=== PATIENT | female | born 1985 | race Caucasian/White ===

== ENCOUNTER 2018-10-15 20:30 | Outpatient (CLI) | payer MEDICAID, OTHER | END 2018-10-15 20:31 | disposition home or self-care (01) | LOC: SLEEPLAB 20:30 | PROVIDERS: ATTEND Family Medicine | DX: G47.33 Obstructive sleep apnea (adult) (pediatric) (principal); R53.83 Other fatigue; R09.89 Other specified symptoms and signs involving the circulatory and respiratory systems; R06.83 Snoring; E11.9 Type 2 diabetes mellitus without complications; F41.8 Other specified anxiety disorders; G47.00 Insomnia, unspecified; G47.10 Hypersomnia, unspecified | CPT/HCPCS: 95811 ==

== ENCOUNTER 2019-02-24 11:53 | Inpatient (IN) | payer OTHER, SELFPAY ==
[~2019-02-24 11:53] MED LIST: Fentanyl 100 MCG/2 ML VIAL ONE; HYDROmorphone 0.5 MG/0.5 ML SYRINGE ONE; Lidocaine 2% Jelly 5 ML TUBE ONE; Midazolam HCl 2 mg/2 ml Vial ONE; Oxymetazoline HCl 0.05% ( 15 ML ) ONE
[2019-02-24] MEDS ORDERED: Ophthalmic Irrigation Solution 0 ML ONE (11:57)
[2019-02-24] MEDS ORDERED: Lidocaine 1% w/Epinephrine 1:100K 20 ML VIAL ONE (11:57)
[2019-02-24] MEDS ORDERED: Bacitracin Zinc Ointment 30 gm TUBE ONE (11:57)
[2019-02-24] MEDS ORDERED: Chlorhexidine Gluconate 15 ML UDCUP SSP ONE ×2 (11:57→11:59)
[2019-02-24] MEDS ORDERED: Sodium Chloride 0.9% 10 ML ONE (12:17)
[2019-02-24] MEDS ORDERED: Acetaminophen 500 MG TAB ONE (12:19)
[2019-02-24] MEDS ORDERED: ISOVUE-370 76%-LOCM 1 ML ONE (12:36)
[2019-02-24 12:38] LABS: #Basophils 0.1 thou/uL (0.0-0.2); #Lymphocytes 1.3 thou/uL (1.20-3.40); #Monocytes 0.3 thou/uL (0.11-0.59); %Basophils 0.5 % (0.0-1.0); %Eosinophils 0.3 % (0.0-10.0); %Lymphocytes 13.6 % (21.0-51.0); %Monocytes 3.5 % (0.0-10.0); %Neutrophils 82.1 % (42.0-75.0); Hemoglobin 9.4 g/dL (12.0-16.0); Mean Corpuscular HGB CONC 33.4 g/dL (32.0-36.0); Mean Corpuscular Hemoglobin 30.4 pg (27.0-31.0); Mean Corpuscular Volume 90.9 fL (78.0-98.0); Mean Platelet Volume 8.2 fL (7.4-10.4); Platelet Count 243 thou/uL (130-400); RBC Distribution Width 19.5 % (11.5-14.5); Red Blood Cell (RBC) Count 3.08 mill/uL (4.20-5.40); White Blood Cell (WBC) Count 9.7 thou/uL (4.8-10.8)
[2019-02-24 12:49] LABS: INR-International Normal Ratio 1.1; PTT 31.3 SEC (22.9-36.1); Prothrombin Time 13.8 SEC (12.0-14.7)
[2019-02-24 12:58] LABS: ALT (SGPT) 29 U/L (8-55); AST (SGOT) 24 U/L (5-34); Albumin 4.3 g/dL (3.5-5.0); Alkaline Phosphatase 179 U/L (40-150); Anion Gap 13 mmol/L (10-20); BUN (Urea Nitrogen) 11 mg/dL (7.0-18.7); Bilirubin, Total 5.2 mg/dL (0.2-1.2); CK (CPK) 44 U/L (29-168); Calc. Creatinine Clearance 0 mL/min (70-130); Calcium 9.2 mg/dL (7.8-10.44); Carbon Dioxide 26 mmol/L (22-29); Chloride 102 mmol/L (98-107); Estimated GFR-MDRD 72; Globulin 2.4 g/dL (2.4-3.5); Glucose 223 mg/dL (70-105); Lipase 4 U/L (8-78); Potassium 4.1 mmol/L (3.5-5.1); Protein, Total 6.7 g/dL (6.0-8.3); Sodium 137 mmol/L (136-145)
--- NOTE | 2019-02-24 13:17 | RAD ---
1 VIEW CHEST: Date: 02/24/19 HISTORY: Fever. Left-sided tooth abscess. FINDINGS: Portable upright chest radiograph demonstrates magnification of the cardiac silhouette, likely due to technique. Pulmonary vessels and hilum are normal. No masses or consolidation. No pneumothorax or os seous abnormalities. IMPRESSION: No acute cardiopulmonary process. POS: [facility]
--- NOTE | 2019-02-24 13:38 | PDOC.FPRHP ---
- History of Present Illness Chief Complaint: Sepsis History of Present Illness: Pt is 33 yo F with a history of GERD, Normocytic anemia, DM II, HtN, Anxiety, Depression, and Morbid obesity who presents for with sepsis 2/2 tooth abscess. She said she knew she had a cavity starting back in January. She was given Amoxicillin on the 04 of February. She said that resolved the pain for about 10 days, but this past Sat on 02/20 she began developing pain. She got an appt on . At the appt they decided to started her on Clinda and gave her some Tylenol 3s for pain. She says the pain has only gotten worse, so she called them back and they told her to come in for surgery. She has had fever, chills, fatigue, headache, abdominal pain every time she eats , and difficulty swallowing due to the swelling. She also reports 2 day hx of decreased PO intake 2/2 abdominal discomfort postprandial. ED Course: In the ED, she was found to be septic with a temp of 101 and tachycardia. We obtained blood cultures, a lactic acid, and procal. On labs, she had an elevated bili of 5.2 and alk phos of 179. She was also found to be anemic at 9.4. - Allergies/Adverse Reactions Allergies Allergy/AdvReac Type Severity Reaction Status Date / Time cephalexin [From Keflex] Allergy Verified 02/24/19 14:55 - Home Medications Medication Instructions Recorded Confirmed Type DULoxetine [Cymbalta] 60 mg PO BID 02/24/19 02/24/19 History Pantoprazole [Protonix] 40 mg PO DAILY 02/24/19 02/24/19 History tiZANidine HCl [Tizanidine HCl] 4 mg PO TID PRN 02/24/19 02/24/19 History - History PMHx: DM2, normocytic anemia, GERD, RITIKA, HTN, hidradenitis, degenerative disc disease of lumbar spine, Anxiety, depression PSHx: R oophorectomy in 2008, Tonsillectomy, Adenoids removed, Tubes in her ears in 1992. FHx: HTN, CAD, DM, HLD, COPD Social: She smoked for 15 years 1PPD, but no longer smokes. She rarely drinks, and she takes no recreational drugs. Allergy: keflex - Review of Systems General: denies: fever/chills, fatigue Eyes: reports: other (AMATO). denies: eye pain, vision changes ENT: denies: nasal congestion, rhinorrhea Respiratory: denies: congestion, shortness of breath Cardiovascular: denies: chest pain Gastrointestinal: reports: abdominal pain (after eating). denies: nausea, vomiting, diarrhea, constipation Skin: reports: rashes Musculoskeletal: reports: swelling. denies: pain Neurological: denies: numbness, weakness Psychological: reports: anxiety, depression - Vital signs BP: 131/85 HR: 112 RR: 16 Tmax: 101 Pox: 98% on RA Wt: 157.8 kg - Physical Exam Constitutional: NAD, awake, alert and oriented HEENT: normocephalic and atraumatic, PERRLA, EOMI, MMM, other -HEENT: Inability to view TM due to wax. Oropharynx clear, but notable swelling on Left side of mouth to the point she is unable to fully open her mouth. Neck: no bruits, other (diffusely swollen abdomen) Chest: no-tender to palpation Heart: RRR, normal S1/S2, no murmurs/rubs/gallops, pulses present Lungs: CTAB Abdomen: soft, non-tender, bowel sounds present Musculoskeletal: normal structure, normal tone, ROM grossly normal Neurological: CN II-XII intact -Skin: Skin is erythematous on her neck Heme/Lymphatic: no unusual bruising or bleeding Psychiatric: normal mood and affect, intact recent and remote memory FMR H&P: Results - Labs Result Diagrams: 02/24/19 12:23 02/24/19 12:23 Lab results: WBC 9.7 thou/uL (4.8-10.8) 02/24/19 12:23 Hgb 9.4 g/dL (12.0-16.0) L 02/24/19 12:23 Hct 28.0 % (36.0-47.0) L 02/24/19 12:23 MCV 90.9 fL (78.0-98.0) 02/24/19 12:23 Plt Count 243 thou/uL (130-400) 02/24/19 12:23 Neutrophils % 82.1 % (42.0-75.0) H 02/24/19 12:23 Sodium 137 mmol/L (136-145) 02/24/19 12:23 Potassium 4.1 mmol/L (3.5-5.1) 02/24/19 12:23 Chloride 102 mmol/L (98-107) 02/24/19 12:23 Carbon Dioxide 26 mmol/L (22-29) 02/24/19 12:23 BUN 11 mg/dL (7.0-18.7) 02/24/19 12:23 Creatinine 0.90 mg/dL (0.6-1.1) 02/24/19 12:23 Glucose 223 mg/dL (70-105) H 02/24/19 12:23 Calcium 9.2 mg/dL (7.8-10.44) 02/24/19 12:23 Total Bilirubin 5.2 mg/dL (0.2-1.2) H 02/24/19 12:23 AST 24 U/L (5-34) 02/24/19 12:23 ALT 29 U/L (8-55) 02/24/19 12:23 Alkaline Phosphatase 179 U/L (40-150) H 02/24/19 12:23 Creatine Kinase 44 U/L (29-168) 02/24/19 12:23 Serum Total Protein 6.7 g/dL (6.0-8.3) 02/24/19 12:23 Albumin 4.3 g/dL (3.5-5.0) 02/24/19 12:23 Lipase 4 U/L (8-78) L 02/24/19 12:23 - EKG Interpretation EKG: Sinus tach FMR H&P: A/P - Problem List (1) Sepsis Current Visit: Yes Status: Acute Code(s): A41.9 - SEPSIS, UNSPECIFIED ORGANISM Qualifiers: Sepsis type: sepsis due to unspecified organism Sepsis acute organ dysfunction status: without acute organ dysfunction Qualified Code(s): A41.9 - Sepsis, unspecified organism (2) Tooth abscess Current Visit: Yes Status: Acute Code(s): K04.7 - PERIAPICAL ABSCESS WITHOUT SINUS (3) HTN (hypertension) Current Visit: Yes Status: Chronic Code(s): I10 - ESSENTIAL (PRIMARY) HYPERTENSION (4) GERD (gastroesophageal reflux disease) Current Visit: Yes Status: Chronic Code(s): K21.9 - GASTRO-ESOPHAGEAL REFLUX DISEASE WITHOUT ESOPHAGITIS (5) Anxiety Current Visit: Yes Status: Chronic Code(s): F41.9 - ANXIETY DISORDER, UNSPECIFIED (6) Depression Current Visit: Yes Status: Chronic Code(s): F32.9 - MAJOR DEPRESSIVE DISORDER, SINGLE EPISODE, UNSPECIFIED (7) Diabetes mellitus Current Visit: Yes Status: Chronic Code(s): E11.9 - TYPE 2 DIABETES MELLITUS WITHOUT COMPLICATIONS Qualifiers: Diabetes mellitus type: type 2 Diabetes mellitus supervisor intermediates insulin use: without supervisor intermediates use Diabetes mellitus complication status: without complication Qualified Code(s): E11.9 - Type 2 diabetes mellitus without complications - Plan Pt is a 33 yo F with a history of DMII, HTN, GERD, and Degnerative disc disease who presents with sepsis 2/2 tooth abscess 1. Sepsis 2/2 Tooth Abscess Temp: 101, Tachycardia, Source of Infection: Tooth * Previously on Amoxicillin and currently on Clindamycin * Obtained blood cultures, procal, and lactic acid * Will restart Clinda 2.Tooth Abscess CT Head: Ill-defined inflammatory changes noted in the L perimandivular region along the inner and outer cortex of the angle of the mandible with involvemnt of the L masseter muscle and the platysma, suggesting diffuse inflammatory/ infectious process. Significant dental caries involving the lateral aspect of the posterior most L mandibular tooth and this may represent odontogenic infection. * I&D of Abscess 02/[address] Jose * Restarting clinda 3. Elevated Total Bili TB: 5.2 * Will get a direct bili to calculate indirect bili * Most likely Gilbert's, but need to rule out other causes 4. Elevated Alk Phos ALk Phos: 179 * Possibly elevated due to odontogenic infection * Will also get GGT to rule out possible GI causes 5. Normocytic Anemia Hgb: 9.4 MCV: 90 * Ordered Iron Studies, Folate, B12 * Will get a peripheral smear 6. HTN BP: 131/85 * Not currently on medication * Will monitor 7. DMII B * Not currently on insulin or PO medication * Will get A1C and monitor 8. Anxiety & Depression Previously on Duloxetine & Abilify * Will restart Duloxetine * Will get Case Management involved to help pt in obtaining meds. 9. GERD Takes Protonix at home as needed * Will continue here Diet: NPO Lines: Peripheral Code Status: Full DVT Prophylaxis: SCDs, will hold lovenox for now due to surgery GI Prophylaxis: Protonix Dispo: Inpt, will have surgery today. FMR H&P: Upper Level - Pertinent history 33yo F with pmh of DM2 and smoking presents to be admitted for maxillofacial surgical mgmt of a dental abscess. 1mo Hx of dental problems and on/off infections. Pt recently finished 2 week course of Augmtin but had exacerbation of pain on Thursday with increased swelling. Her dentist gave her Rx for clindamycin 2 days ago. ROS: denies fever/chills, endorses facial swelling and related decreased PO intake PMHx: DM2, Obesity - Pertinent findings Facial CT: shows evidence of odontologic infection Vitals: tachycardic, febrile Exam: Facial edema and moderate ttp along L mandible, tachycardic. otherwise normal cardiopulmonary/GI exam. - Plan Date/Time: 02/24/19 1338 I, Joao Warner PGY2, have evaluated this patient and agree with findings/plan as outlined by international guest coordinator resident. Pertinent changes/additions are listed here. Sepsis 2/2 dental abscess A-Pt stable. FM team called to admit pt for surgical mgmt of infection. Pt failed therapy with augmentin. Pt meeting SIRS criteria with HR and temp. P- admit for surgery this afternoon -BCx -IV clindamycin -LA series DM2 A- pt denies ever being on therapy but clinic notes say she was supposed to start metformin. Last A1C was in July 2018 and was 5.7 P- will get A1C Anemia A- asymptomatic P- iron, TIBC, ferritin, folate, B12 Hyperbilirubinemia A- elevated incidentally P- will get direct/indirect bili and peripheral smear Anxiety/depression A- Pt reports good control on home meds but ran out of funding. P- after surgery will restart home duloxetine and consult CM for assistance in outpt medications on DC -hold abilify to restart outpt RITIKA A- Hx of RITIKA per chart review but pt did not report medical problem on interview P- will clarify with pt Dx and if she requires CPAP GERD -home PPI Hidradenitis -MD andrey aware Obesity -advise weight loss PCP: Marilyn All other mgmt of chronic problems per interns note.
--- NOTE | 2019-02-24 13:49 | CT ---
CT FACE: Date: 02/24/19 COMPARISON: None. HISTORY: Left-sided tooth abscess. TECHNIQUE: Axial CT imaging at 2.5 mm intervals through the face with IV contrast. Coronal and sagittal reformat елена imaging obtained. FINDINGS: The imaged brain parenchyma is unremarkable. Visualized portions of the frontal sinuses appear unremarkable as well. The ethmoid air cells, the sphenoid sinuses, the maxillary sinuses, and the imaged mastoid air cells appear unremarkable. The parotid and submandibular glands appear grossly unremarkable bilaterally. There is thickening of the platysma on the left at the axial level of the mandible. The left masseter muscle is enlarged and edematous, evidence of inflammatory change. The pterygoid musculature appears unremarkable bilaterally. The retroantral fat and the parapharyngeal fat appears grossly unremarkabl e. Numerous missing right mandibular teeth noted. There is no discrete periapical abscess involving the mandibular teeth. There is a dental caries invo lving the posterior most left mandibular tooth laterally. There is no discrete periapical abscess involving the maxillary teeth. No drainable abscesses noted. There is no lymphadenopathy noted. Review of the osseous structures demonstrates no worrisome lytic or blastic bone lesion. There is skin thickening and subcutaneous fat stranding involving the left facial region at the level of the mandible. There is mucosal thickening involving the gingival surface along the inner cortex of the mandible cade r the angle on the left. IMPRESSION: Ill-defined inflammatory change noted in the left perimandibular region along the inner and outer cor lucille of the angle of mandible, with involvement of the left masseter muscle and the platysma, suggesti ng diffuse inflammatory/infectious process. While no discrete periapical abscess is noted, there is a significant dental caries involving the lateral aspect of the posterior most left mandibular tooth a nd thus this may represent an odontogenic infection. POS: [facility]
[2019-02-24] MEDS ORDERED: Piperacillin/Tazobactam 3.375 GM VIAL ONE ×2 (13:50)
[2019-02-24] MEDS ORDERED: Morphine 4 MG/ML VIAL ONE (14:02)
[2019-02-24] MEDS ORDERED: Acetaminophen 325 MG TAB PO PRN (14:47)
[2019-02-24] MEDS ORDERED: Senokot S 8.6-50 MG TAB PO PRN (14:47)
[2019-02-24] MEDS ORDERED: Ondansetron ODT 4 MG TAB PO PRN (14:47)
[2019-02-24] MEDS ORDERED: Loperamide HCl 2 MG CAP PO PRN ×2 (14:47)
[2019-02-24] MEDS ORDERED: SUGAMMADEX SODIUM 500 MG/5 ML VIAL ONE (14:54)
[2019-02-24] MEDS ORDERED: Enoxaparin Sodium 40 MG/0.4 ML SYRINGE SC SCH (15:00)
[2019-02-24 15:27] LABS: Bilirubin, Direct 2.3 mg/dL (0.1-0.3)
[2019-02-24] MEDS ORDERED: Bupivacaine HCl 0.5%/Epinephrine 1:200,000/PF 30 ml Vial ONE (15:46)
[2019-02-24 15:49] LABS: Ferritin 427.77 ng/mL (10-291)
[2019-02-24] MEDS ORDERED: Fentanyl 100 MCG/2 ML VIAL ONE (16:27)
[2019-02-24 17:35] VITALS: BMI 55.8
[2019-02-24 17:51] LABS: Lactic Acid 1.1 mmol/L (0.5-2.2)
[2019-02-24] MEDS: Acetaminophen 650 MG/20.3 ML UDCUP PO PRN (18:03)
[2019-02-24] MEDS: Ampicillin/Sulbactam 3 GM in Sodium Chloride 0.9% 100 ML IVPB SCH (18:03)
[2019-02-24 18:25] LABS: Folate (Folic Acid) 8.1 ng/mL (7.0-31.4)
[2019-02-24] MEDS: Famotidine 20 MG TAB PO SCH (20:35)
[2019-02-24] MEDS: Ketorolac Tromethamine 30 MG/ML VIAL IVP PRN (20:35)
--- NOTE | 2019-02-24 21:08 | HP ---
HISTORY OF PRESENT ILLNESS: I have examined the patient and discussed the case with Dr. Rashaun Alicea and agree with her assessment and plan. Ms. Huang is a 33-year-old white female with type 2 diabetes, who presented with a several-day history of pain and swelling in her left lower jaw. She has been seeing a dentist and likely has a dental abscess. When coming into the ER, she was febrile and met sepsis criteria. She is to be taken to surgery shortly and we were asked to see her for medical management. PHYSICAL EXAMINATION: VITAL SIGNS: Her blood pressure is 148/84, her pulse rate is 88, her respirations are 14. She has temperature of a 101 degrees. GENERAL: She is awake, alert, in no acute distress. She has obvious facial swelling on the left lower side. EAR, NOSE, AND THROAT: She has multiple dental caries in the left lower jaw with some swelling, but no overt abscess seen. She does not have trismus. NECK: Supple. CARDIAC: Heart rhythm, regular. No gallop or murmur noted. LUNGS: Clear without rales or wheezes. ABDOMEN: Obese, but flat, soft without guarding, rebound, or rigidity. EXTREMITIES: Trace edema. NEUROLOGIC: No focal deficits. LABORATORY DATA: CBC; white count is 9700 with a hemoglobin of 9.4, hematocrit 28, and MCV of 90.9. Platelets are 243,000. Chemistry; sodium 137, potassium 4.1, chloride 102, bicarb 26, BUN 11, creatinine 0.9. Glucose nonfasting elevated at 223. Her total bilirubin is 5.2, but her transaminases are normal. Alkaline phosphatase is elevated at 179. Facial bone CAT scan reveals an ill-defined inflammatory change in the left perimandibular region along the inner and outer cortex of the angle of the mandible with involvement of the left masseter muscle and the platysma, suggesting diffuse inflammatory infectious process. No discrete periapical abscess is noted. There are however significant dental caries involving the lateral aspect of the posterior-most left mandibular tooth and this likely represents an odontogenic infection. ASSESSMENT: Dental abscess with possible extension into soft tissue. PLAN: Administer intravenous antibiotics and I would suggest clindamycin. The patient is to be taken to surgery shortly. We will also be careful to manage her diabetes postoperatively. Job ID: [id number]
[2019-02-24] MEDS ORDERED: Clindamycin/D5W 600 MG in Premix Bag 1 BAG IVPB SCH (22:00)
[2019-02-25] MEDS: Acetaminophen 650 MG/20.3 ML UDCUP PO PRN (00:14)
[2019-02-25] MEDS: Ampicillin/Sulbactam 3 GM in Sodium Chloride 0.9% 100 ML IVPB SCH ×4 (00:14→17:22)
[2019-02-25] MEDS: Morphine 2 MG/ML SYRINGE SLOW IVP PRN ×5 (00:15→20:48)
[2019-02-25 05:14] LABS: Anion Gap 17 mmol/L (10-20); BUN (Urea Nitrogen) 8 mg/dL (7.0-18.7); Calc. Creatinine Clearance 254 mL/min (70-130); Calcium 9.2 mg/dL (7.8-10.44); Carbon Dioxide 17 mmol/L (22-29); Chloride 106 mmol/L (98-107); Estimated GFR-MDRD 85; Glucose 287 mg/dL (70-105); Potassium 4.9 mmol/L (3.5-5.1); Sodium 135 mmol/L (136-145)
[2019-02-25] MEDS: Ketorolac Tromethamine 30 MG/ML VIAL IVP PRN ×3 (05:25→18:21)
--- NOTE | 2019-02-25 06:10 | PDOC.FM ---
- Subjective Subjective: Pt still has significant swelling in her face and neck. She is complaining of a sore throat that has occurred since surgery. She also said she has not had a BM in 3 days and they have been hard. She is not having abdominal pain. She was able to eat after surgery yesterday. - Objective MAR Reviewed: Yes Vital Signs & Weight: Vital Signs (12 hours) Temp Pulse Resp BP Pulse Ox 02/25/19 04:05 99.4 F 91 16 135/81 95 02/24/19 23:45 99.8 F H 106 H 16 141/77 H 95 02/24/19 20:15 99.5 F 111 H 16 129/78 94 L 02/24/19 20:14 94 L Weight Weight 156.943 kg I&O: 02/23/19 02/24/19 02/25/19 06:59 06:59 06:59 Intake Total 800 Balance 800 Result Diagrams: 02/25/19 06:06 02/25/19 04:49 Phys Exam - Physical Examination Sitting up right hunched over HEENT: PERRLA, moist MMs, sclera anicteric significantly swollen and ttp Respiratory: clear to auscultation bilateral Cardiovascular: RRR, no significant murmur Gastrointestinal: soft, non-tender, positive bowel sounds Musculoskeletal: no edema, pulses present Neurological: moves all 4 limbs Psychiatric: normal affect Deviation from normal: Erythema present on the bentral aspect of the neck. Dx/Plan (1) Sepsis Code(s): A41.9 - SEPSIS, UNSPECIFIED ORGANISM Status: Acute Qualifiers: Sepsis type: sepsis due to unspecified organism Sepsis acute organ dysfunction status: without acute organ dysfunction Qualified Code(s): A41.9 - Sepsis, unspecified organism (2) Tooth abscess Code(s): K04.7 - PERIAPICAL ABSCESS WITHOUT SINUS Status: Acute (3) HTN (hypertension) Code(s): I10 - ESSENTIAL (PRIMARY) HYPERTENSION Status: Chronic (4) GERD (gastroesophageal reflux disease) Code(s): K21.9 - GASTRO-ESOPHAGEAL REFLUX DISEASE WITHOUT ESOPHAGITIS Status: Chronic (5) Anxiety Code(s): F41.9 - ANXIETY DISORDER, UNSPECIFIED Status: Chronic (6) Depression Code(s): F32.9 - MAJOR DEPRESSIVE DISORDER, SINGLE EPISODE, UNSPECIFIED Status : Chronic (7) Diabetes mellitus Code(s): E11.9 - TYPE 2 DIABETES MELLITUS WITHOUT COMPLICATIONS Status: Chronic Qualifiers: Diabetes mellitus type: type 2 Diabetes mellitus long term acute care registered nurse insulin use: without fpc use Diabetes mellitus complication status: without complication Qualified Code(s): E11.9 - Type 2 diabetes mellitus without complications - Plan Plan: Pt is a 33 yo F with a history of DMII, HTN, GERD, and Degnerative disc disease who presents with sepsis 2/2 tooth abscess 1. Sepsis 2/2 Tooth Abscess Temp: 101, Tachycardia, Source of Infection: Tooth * Previously on Amoxicillin and was on Clindamycin, but held * Obtained blood cultures: pending * WBC: 13.2 * Procal: 0.17 * LA: 1.1 * On Unasyn 2.Tooth Abscess CT Head: Ill-defined inflammatory changes noted in the L perimandibular region along the inner and outer cortex of the angle of the mandible with involvement of the L masseter muscle and the platysma, suggesting diffuse inflammatory/ infectious process. Significant dental caries involving the lateral aspect of the posterior most L mandibular tooth and this may represent odontogenic infection. * I&D of Abscess 02/[address] Jose * On Unasyn * Wound Gram Stain: Few WBC, No organisms, Rare epithelial cells * Wound Cx: pending 3. Elevated Total Bili TB: 5.2 DB: 2.3 IB: 2.9 * Will consider getting a RUQ US and AMA 4. Elevated Alk Phos ALk Phos: 179 * Possibly elevated due to odontogenic infection * GGT elevated at 104 5. Normocytic Anemia Hgb: 9.4 MCV: 90 * Ordered Iron Studies, Folate, B12 * Will get a peripheral smear 6. HTN BP: 129/78-141/77 * Will monitor * She is currently in pain, but she stays her BP at home is 120s/70s 7. DMII B * A1C: 7.0 * Started Metformin 500 mg 8. Anxiety & Depression Previously on Duloxetine & Abilify * Will restart Duloxetine * Will get Case Management involved to help pt in obtaining meds. 9. GERD Takes Protonix at home as needed * Will continue here Diet: NPO Lines: Peripheral Code Status: Full DVT Prophylaxis: SCDs, will hold lovenox for now due to surgery GI Prophylaxis: Protonix Dispo: Inpt, will have surgery today.
[2019-02-25 06:48] LABS: Band 14 % (5-11); Hemoglobin 7.8 g/dL (12.0-16.0); Lymphocytes 6 % (21-51); MDiff Complete? YES; Mean Corpuscular HGB CONC 32.7 g/dL (32.0-36.0); Mean Corpuscular Hemoglobin 29.6 pg (27.0-31.0); Mean Corpuscular Volume 90.7 fL (78.0-98.0); Mean Platelet Volume 8.7 fL (7.4-10.4); Monocytes 4 % (0-10); Neutrophil 76 % (42-75); Platelet Count 231 thou/uL (130-400); Polychromasia SLIGHT = 2-3 cells (100X) (0-2/hpf); RBC Distribution Width 19.8 % (11.5-14.5); Red Blood Cell (RBC) Count 2.62 mill/uL (4.20-5.40); White Blood Cell (WBC) Count 13.2 thou/uL (4.8-10.8)
[2019-02-25] MEDS: metFORMIN 500 MG TAB PO SCH ×2 (08:34→17:22)
[2019-02-25] MEDS: Famotidine 20 MG TAB PO SCH ×2 (08:34→20:39)
[2019-02-25] MEDS: Chlorhexidine Gluconate 15 ML UDCUP SSP SCH ×2 (08:34→20:39)
[2019-02-25] MEDS: Enoxaparin Sodium 40 MG/0.4 ML SYRINGE SC SCH (08:35)
[2019-02-25] MEDS ORDERED: Senokot S 8.6-50 MG TAB PO SCH (09:00)
[2019-02-25] MEDS ORDERED: Lisinopril 5 MG TAB PO SCH (09:00)
--- NOTE | 2019-02-25 11:42 | PRG ---
DATE OF SERVICE: 02/25/2019 Ms. Huang did not go to surgery yesterday afternoon for work on her dental infections. This morning, she feels better, though certainly not tip-top. She is having some pain, but it is currently afebrile. Her vital signs are stable. Still with some mild facial swelling, but markedly improved from yesterday. Not surprisingly, her white count did bounce a little bit to 13,000, hemoglobin is 7.8, and hematocrit is 23.8. We will start some studies to check further on her anemia. Her A1c is 7. So for now, we will continue IV antibiotics. Job ID: [id number]
--- NOTE | 2019-02-25 13:55 | OP ---
DATE OF PROCEDURE: 02/25/2019 PREOPERATIVE DIAGNOSES: Left buccal, vestibular, dry mixer space infection. Nonrestorable tooth #18. POSTOPERATIVE DIAGNOSES: Left buccal, vestibular, dry mixer space infection. PROCEDURE PERFORMED: Incision and drainage via intraoral route of left buccal, vestibular, dry mixer space to include submasseteric space infection and extraction of tooth #18. ESTIMATED BLOOD LOSS: Less than 10 mL. URINE OUTPUT: None. No Cruz. ANESTHESIA: General endotracheal anesthesia via an oral route. COMPLICATIONS: None. SPECIMEN: Culture swabs to include aerobic, anaerobic, and gram stain. INDICATION: Day of surgery, the patient was seen in the emergency department with complaints severe pain left face and mouth, states 1 month history of chronic swelling from lower left tooth and that it has resolved with course of Amoxicillin each time. The past 4-5 days the swelling of left face has progressed with no regression with course of antibiotics. Patient states recent change in voice and difficulty swallowing. She has limited NORBERTO and has severe tenderness/pain to touch of left face. She has left buccal, vestibular, submandibular and dry mixer space swelling with concern for odontogenic infection. CT imaging reviewed no nelsy loculated abscess, but areas with significant cellulitis extending down to left submandibular region along with the left buccal and submasseteric space. Clinical exam revealed limited NORBERTO, morbidly obese body habitus, concern for airway management. Discussed risks, indications, and alternatives with the patient, recommendations included extraction of nonrestorable tooth #18, with incision and drainage via oral versus transcervical route along with extraction of non- restorable tooth #18. The patient elected to continue with the procedure. PROCEDURE IN DETAIL: The patient was transferred to the operating room, placed supine on the OR table. Standard cardiopulmonary monitors were applied. The patient was deemed a good candidate to undergo general anesthesia. She was intubated via an oral endotracheal tube. Anesthesia team confirmed it was the firm position and was secured by the surgical team. At this point, the patient was prepped and draped in a standard sterile fashion. Bite block was placed. Throat pack was placed. Used 8 mL of 2% lidocaine with 1:100,000 epinephrine in addition to 7 mL of 0.5% Marcaine with 1:200,000 epinephrine, infiltrated into the left buccal, vestibular space in addition to left inferior alveolar nerve block. At this point, using a 15-blade, made a distal buccal incision extending distal to #18, extending it sulcular along #18, thickness flap reflected. Tooth #18 was extracted. We then included a 1.5 cm incision along the left vestibular space down to bone and blunty dissected into the buccal and vestibular space using mosquito hemostats, including into the cellulitic areas on the left submandibular region. Jensen was secured in the left mandibular vestibular space using 4-0 chromic gut suture. A 1 cm incision was made over the pterygomandibular raphe through mucosa, then blunt dissection down along the left submasseteric left medial pterygoid space. Copious sterile saline irrigation, which was mixed with 1 L of saline with the 50,000 units bacitracin. Aerobic and anaerobic culture swabs were performed prior to copious irrigation. At this point, procedure was deemed to complete. The patient was extubated with the spontaneous respirations intact and transferred to the PACU in stable condition. Job ID: [id number] [facility]
--- NOTE | 2019-02-25 14:00 | ULT ---
EXAM: US Gallbladder RUQ CLINICAL HISTORY: Abdominal pain. Abnormal laboratory values. COMPARISON: None. FINDINGS: Examination is limited due to body habitus and bowel gas, despite being nothing by mouth for 6 hours Pancreas: Obscured by bowel gas Liver:Increased echogenicity which may be due to technical limitations. However, hepatic steatosis or hepatocellular disease must be considered. Limited evaluation for intrahepatic biliary dilatation or hepatic masses. Portal vein: Obscured by bowel gas Gallbladder: Obscured by bowel gas Jones's sign:Cannot be assessed Bile ducts: Obscured by bowel gas Right kidney: Obscured by bowel. IMPRESSION: 1. Suboptimal evaluation due to bowel gas and body habitus. Repeat imaging if clinically warranted.
[2019-02-25] MEDS ORDERED: Dextrose 5% in Water 1,000 ML IV PRN (16:47)
[2019-02-25] MEDS ORDERED: Dextrose 50% Abboject 50 ML SYRINGE IVP PRN (16:47)
[2019-02-25] MEDS: Insulin Regular 300 UNITS/3 ML VIAL SC PRN ×2 (17:21→20:39)
--- NOTE | 2019-02-25 22:54 | PRG ---
DATE OF SERVICE: 02/25/2019 SUBJECTIVE: A 33-year-old female, one day status post incision and drainage of left buccal, vestibular, and vendette space infection and extraction of tooth #18. The patient has had an unremarkable hospital course. The patient's pain has been managed with IV and p.o. pain medications. She has been continuously receiving Unasyn 3 g q.6 hours scheduled. Denies postop nausea or vomiting. She is ambulating, and she is accepting minimal oral intake. FOCUSED CLINICAL EXAMINATION: VITAL SIGNS: Stable. She is afebrile. HEAD, EARS, EYES, NOSE, AND THROAT: Normocephalic and atraumatic. Pupils are equal and reactive to light and accommodation. TMs intact. Nares are patent. Throat is supple. CARDIAC: Regular rhythm and rate. No murmurs, rubs, or gallops. PULMONARY: Clear to auscultation bilaterally. No wheezes, rales, or rhonchi. MUSCULOSKELETAL: 5/5 upper and lower extremity strength. MAXILLOFACIAL: Moderate left facial swelling along the mid to lower face. Noted cellulitic induration along the left submandibular area, left buccal inferior to left lower lid. No purulence was appreciated. Minimal exudative drainage was noted from left vestibular Lawrence drain that was placed. INTRAORAL EXAM: Occlusion stable. No active purulence or drainage appreciated. Jensen is secured with a 3-0 chromic gut suture. NORBERTO improved from yesterday at 2 fingerbreadths. Positive guarding. No floor of mouth elevation. No peritonsillar swelling. No airway concern. LABORATORY DATA: Noted increased white blood cell count to 13.2, which was consistent with corticosteroids from procedure yesterday. Also noted increased neutrophil count with banding. ASSESSMENT: Satisfactory postop course. PLAN: Discuss with Family resident. The patient to continue with IV antibiotics and pain medication. The patient will be followed up as an outpatient with sofa cover inspector Department. The patient to receive Augmentin 875 b.i.d. x10 days as outpatient. Can transition to p.o. pain meds 26 February 2019. Plan to remove drain tomorrow, 26 February 2019. The patient can follow up with us as an outpatient at [facility] Oral [facility]illofacial [facility] .Thanks for your help with managing Mrs. Huang. Job ID: [id number] [facility]
[2019-02-26] MEDS: Ampicillin/Sulbactam 3 GM in Sodium Chloride 0.9% 100 ML IVPB SCH ×4 (00:28→18:07)
[2019-02-26] MEDS: Ketorolac Tromethamine 30 MG/ML VIAL IVP PRN ×4 (00:33→18:08)
[2019-02-26] MEDS: Acetaminophen 650 MG/20.3 ML UDCUP PO PRN ×2 (03:37→21:07)
[2019-02-26] MEDS: Morphine 2 MG/ML SYRINGE SLOW IVP PRN ×3 (03:40→21:11)
[2019-02-26 04:44] LABS: #Lymphocytes 2.1 thou/uL (1.20-3.40); #Monocytes 0.5 thou/uL (0.11-0.59); #Neutrophils 7.6 thou/uL (1.40-6.50); %Basophils 0.2 % (0.0-1.0); %Eosinophils 0.1 % (0.0-10.0); %Lymphocytes 20.4 % (21.0-51.0); %Monocytes 4.8 % (0.0-10.0); %Neutrophils 74.4 % (42.0-75.0); Hemoglobin 7.8 g/dL (12.0-16.0); Mean Corpuscular HGB CONC 32.7 g/dL (32.0-36.0); Mean Corpuscular Hemoglobin 30.3 pg (27.0-31.0); Mean Corpuscular Volume 92.7 fL (78.0-98.0); Mean Platelet Volume 8.5 fL (7.4-10.4); Platelet Count 271 thou/uL (130-400); Red Blood Cell (RBC) Count 2.59 mill/uL (4.20-5.40); White Blood Cell (WBC) Count 10.1 thou/uL (4.8-10.8)
[2019-02-26 05:05] LABS: Anion Gap 13 mmol/L (10-20); BUN (Urea Nitrogen) 10 mg/dL (7.0-18.7); Calc. Creatinine Clearance 233 mL/min (70-130); Calcium 9.4 mg/dL (7.8-10.44); Carbon Dioxide 23 mmol/L (22-29); Chloride 106 mmol/L (98-107); Estimated GFR-MDRD 77; Glucose 205 mg/dL (70-105); Potassium 3.6 mmol/L (3.5-5.1); Sodium 138 mmol/L (136-145)
--- NOTE | 2019-02-26 05:25 | PDOC.FM ---
- Subjective Subjective: Pt is doing ok. She is still having pain. Swelling has improved in her check and she no longer has erythema on her neck. She is eating liquids still. - Objective MAR Reviewed: Yes Vital Signs & Weight: Vital Signs (12 hours) Temp Pulse Resp BP Pulse Ox 02/26/19 04:48 99 02/26/19 04:00 100.8 F H 99 20 114/78 99 02/26/19 00:00 98.6 F 103 H 18 115/74 98 02/25/19 20:00 98 F 107 H 20 111/64 97 Weight Weight 156.943 kg I&O: 02/24/19 02/25/19 02/26/19 06:59 06:59 06:59 Intake Total 800 1700 Balance 800 1700 Result Diagrams: 02/26/19 04:04 02/26/19 04:04 Phys Exam - Physical Examination Constitutional: NAD HEENT: PERRLA, moist MMs Neck: supple, full ROM Respiratory: clear to auscultation bilateral Cardiovascular: RRR, no significant murmur Gastrointestinal: soft, non-tender, positive bowel sounds Musculoskeletal: no edema, pulses present Neurological: moves all 4 limbs Psychiatric: normal affect, A&O x 3 Skin: no rash, normal turgor, cap refill <2 seconds Dx/Plan (1) Sepsis Code(s): A41.9 - SEPSIS, UNSPECIFIED ORGANISM Status: Acute Qualifiers: Sepsis type: sepsis due to unspecified organism Sepsis acute organ dysfunction status: without acute organ dysfunction Qualified Code(s): A41.9 - Sepsis, unspecified organism (2) Tooth abscess Code(s): K04.7 - PERIAPICAL ABSCESS WITHOUT SINUS Status: Acute (3) HTN (hypertension) Code(s): I10 - ESSENTIAL (PRIMARY) HYPERTENSION Status: Chronic (4) GERD (gastroesophageal reflux disease) Code(s): K21.9 - GASTRO-ESOPHAGEAL REFLUX DISEASE WITHOUT ESOPHAGITIS Status: Chronic (5) Anxiety Code(s): F41.9 - ANXIETY DISORDER, UNSPECIFIED Status: Chronic (6) Depression Code(s): F32.9 - MAJOR DEPRESSIVE DISORDER, SINGLE EPISODE, UNSPECIFIED Status : Chronic (7) Diabetes mellitus Code(s): E11.9 - TYPE 2 DIABETES MELLITUS WITHOUT COMPLICATIONS Status: Chronic Qualifiers: Diabetes mellitus type: type 2 Diabetes mellitus ferry terminal supervisor insulin use: without residential use Diabetes mellitus complication status: without complication Qualified Code(s): E11.9 - Type 2 diabetes mellitus without complications - Plan Plan: Pt is a 33 yo F with a history of DMII, HTN, GERD, and Degnerative disc disease who presents with sepsis 2/2 tooth abscess 1. Sepsis 2/2 Tooth Abscess Temp: 101, Tachycardia, Source of Infection: Tooth * Previously on Amoxicillin and was on Clindamycin, but held * Obtained blood cultures: pending * WBC: 10.1 * Procal: 0.17 * LA: 1.1 * On Unasyn * BCx: 1/2 Gram + Cocci, most likely contaminate 2.Tooth Abscess CT Head: Ill-defined inflammatory changes noted in the L perimandibular region along the inner and outer cortex of the angle of the mandible with involvement of the L masseter muscle and the platysma, suggesting diffuse inflammatory/ infectious process. Significant dental caries involving the lateral aspect of the posterior most L mandibular tooth and this may represent odontogenic infection. * I&D of Abscess 02/[address] Hall * On Unasyn * Wound Gram Stain: Few WBC, No organisms, Rare epithelial cells * Wound Cx: pending * OMFS: Transition to PO pain meds and Augmentin 875 BID x 10 d and f/u oupt 3. Elevated Total Bili TB: 5.2 DB: 2.3 IB: 2.9 * RUQ: Increased echogenicity, possible hepatic steatosis or hepatocellular disease 4. Elevated Alk Phos ALk Phos: 179 * GGT elevated at 104 5. Normocytic Anemia Hgb: 9.4 MCV: 90 * Peripheral smear: Leukocytosis with increased bands, normocytic normochromic anemia * Seems more iron deficiency anemia with anemia of chronic disease. She was also being worked up in the past for hemochromatosis. 6. HTN, Improved BP: 105/70-126/75 * She is currently in pain, but she stays her BP at home is 120s/70s 7. DMII B * A1C: 7.0 * Metformin 500 mg * SSI, Mild 8. Anxiety & Depression Previously on Duloxetine & Abilify * Will restart Duloxetine * Will get Case Management involved to help pt in obtaining meds. 9. GERD Takes Protonix at home as needed * Will continue here Diet: NPO Lines: Peripheral Code Status: Full DVT Prophylaxis: SCDs, will hold lovenox for now due to surgery GI Prophylaxis: Protonix Dispo: Inpt, drain removal today. Need to f/u on surgery recs. Addendum - Attending - Attending Attestation Date/Time: 02/26/192015 I personally evaluated the patient and discussed the management with Dr. Alicea I agree with the History, Examination, Assessment and Plan documented above with any addition or exceptions noted below.
[2019-02-26] MEDS: Insulin Regular 300 UNITS/3 ML VIAL SC PRN ×3 (05:40→22:00)
[2019-02-26] MEDS: metFORMIN 500 MG TAB PO SCH ×2 (10:06→18:04)
[2019-02-26] MEDS: Enoxaparin Sodium 40 MG/0.4 ML SYRINGE SC SCH (10:06)
[2019-02-26] MEDS: Chlorhexidine Gluconate 15 ML UDCUP SSP SCH ×2 (10:06→21:08)
[2019-02-26] MEDS: Famotidine 20 MG TAB PO SCH ×2 (10:07→21:08)
--- NOTE | 2019-02-26 13:39 | EKG ---
Test Reason : SEPSIS Blood Pressure : / mmHG Vent. Rate : 110 BPM Atrial Rate : 110 BPM P-R Int : 158 ms QRS Dur : 086 ms QT Int : 330 ms P-R-T Axes : 039 022 011 degrees QTc Int : 446 ms Sinus tachycardia Cannot rule out Anterior infarct , age undetermined Abnormal ECG Confirmed by RUTH STRICKLAND D.O. ([id number]), deputy editor in chief JAY LAMBERT ([id number]) on 02/26/2019 1:38:46 PM Referred By: Confirmed By:RUTH STRICKLAND D.O.
[2019-02-27] MEDS: Ampicillin/Sulbactam 3 GM in Sodium Chloride 0.9% 100 ML IVPB SCH ×2 (00:04→05:37)
[2019-02-27] MEDS: Morphine 2 MG/ML SYRINGE SLOW IVP PRN ×2 (01:23→05:07)
[2019-02-27] MEDS: Acetaminophen 650 MG/20.3 ML UDCUP PO PRN (05:08)
[2019-02-27 05:16] LABS: Anion Gap 15 mmol/L (10-20); BUN (Urea Nitrogen) 9 mg/dL (7.0-18.7); Calc. Creatinine Clearance 254 mL/min (70-130); Calcium 8.8 mg/dL (7.8-10.44); Carbon Dioxide 21 mmol/L (22-29); Chloride 105 mmol/L (98-107); Estimated GFR-MDRD 85; Glucose 181 mg/dL (70-105); Potassium 3.9 mmol/L (3.5-5.1); Sodium 137 mmol/L (136-145)
[2019-02-27 05:47] LABS: Anisocytosis MODERATE=16-30 cells (100X) (0-5/hpf); Band 5 % (5-11); Eosinophils 1 % (0-10); Hemoglobin 7.4 g/dL (12.0-16.0); Lymphocytes 20 % (21-51); MDiff Complete? YES; Mean Corpuscular HGB CONC 32.6 g/dL (32.0-36.0); Mean Corpuscular Hemoglobin 29.5 pg (27.0-31.0); Mean Corpuscular Volume 90.4 fL (78.0-98.0); Mean Platelet Volume 8.4 fL (7.4-10.4); Monocytes 5 % (0-10); Neutrophil 69 % (42-75); Nucleated RBC 1 % (0); Platelet Count 258 thou/uL (130-400); Platelet Morphology Comment Appears Adequate; Polychromasia SLIGHT = 2-3 cells (100X) (0-2/hpf); RBC Distribution Width 19.6 % (11.5-14.5); Red Blood Cell (RBC) Count 2.51 mill/uL (4.20-5.40); White Blood Cell (WBC) Count 10.5 thou/uL (4.8-10.8)
--- NOTE | 2019-02-27 05:47 | PDOC.FM ---
- Subjective Subjective: Pt still has swelling, but it is improving. They removed the drain yesterday. She was told to knead her face to help reduce the swelling. She is still on liquids. She did say she had a normal BM for the first time in a long time. - Objective MAR Reviewed: Yes Vital Signs & Weight: Vital Signs (12 hours) Temp Pulse Resp BP Pulse Ox 02/27/19 03:35 100 F H 99 18 125/82 92 L 02/26/19 23:24 98.9 F 94 16 111/76 94 L 02/26/19 20:00 96 02/26/19 19:15 100.1 F H 106 H 18 110/72 96 Weight Weight 156.943 kg I&O: 02/25/19 02/26/19 02/27/19 06:59 06:59 06:59 Intake Total 800 2330 1450 Balance 800 2330 1450 Result Diagrams: 02/27/19 04:50 02/27/19 04:50 Phys Exam - Physical Examination Constitutional: NAD HEENT: PERRLA, moist MMs Face is still swollen on left but improving Neck: full ROM Respiratory: clear to auscultation bilateral Cardiovascular: RRR, no significant murmur Gastrointestinal: soft, non-tender, positive bowel sounds Musculoskeletal: no edema, pulses present Neurological: moves all 4 limbs Psychiatric: normal affect Skin: no rash Dx/Plan (1) Sepsis Code(s): A41.9 - SEPSIS, UNSPECIFIED ORGANISM Status: Acute Qualifiers: Sepsis type: sepsis due to unspecified organism Sepsis acute organ dysfunction status: without acute organ dysfunction Qualified Code(s): A41.9 - Sepsis, unspecified organism (2) Tooth abscess Code(s): K04.7 - PERIAPICAL ABSCESS WITHOUT SINUS Status: Acute (3) HTN (hypertension) Code(s): I10 - ESSENTIAL (PRIMARY) HYPERTENSION Status: Chronic (4) GERD (gastroesophageal reflux disease) Code(s): K21.9 - GASTRO-ESOPHAGEAL REFLUX DISEASE WITHOUT ESOPHAGITIS Status: Chronic (5) Anxiety Code(s): F41.9 - ANXIETY DISORDER, UNSPECIFIED Status: Chronic (6) Depression Code(s): F32.9 - MAJOR DEPRESSIVE DISORDER, SINGLE EPISODE, UNSPECIFIED Status : Chronic (7) Diabetes mellitus Code(s): E11.9 - TYPE 2 DIABETES MELLITUS WITHOUT COMPLICATIONS Status: Chronic Qualifiers: Diabetes mellitus type: type 2 Diabetes mellitus buttermaker helper insulin use: without usp use Diabetes mellitus complication status: without complication Qualified Code(s): E11.9 - Type 2 diabetes mellitus without complications - Plan Plan: Pt is a 33 yo F with a history of DMII, HTN, GERD, and Degnerative disc disease who presents with sepsis 2/2 tooth abscess 1. Sepsis 2/2 Tooth Abscess Temp: 101, Tachycardia, Source of Infection: Tooth * Previously on Amoxicillin and was on Clindamycin, but held * Obtained blood cultures: pending * WBC: 10.1 * Procal: 0.17 * LA: 1.1 * On Augmentin now * BCx: 1/2 Gram + Cocci, most likely contaminate 2.Tooth Abscess CT Head: Ill-defined inflammatory changes noted in the L perimandibular region along the inner and outer cortex of the angle of the mandible with involvement of the L masseter muscle and the platysma, suggesting diffuse inflammatory/ infectious process. Significant dental caries involving the lateral aspect of the posterior most L mandibular tooth and this may represent odontogenic infection. * I&D of Abscess 02/[address] Hall * On Unasyn * Wound Gram Stain: Few WBC, No organisms, Rare epithelial cells * Wound Cx: pending * OMFS: Transition to PO pain meds and Augmentin 875 BID x 10 d and f/u oupt 3. Elevated Total Bili TB: 5.2 DB: 2.3 IB: 2.9 * RUQ: Increased echogenicity, possible hepatic steatosis or hepatocellular disease 4. Elevated Alk Phos ALk Phos: 179 * GGT elevated at 104 5. Normocytic Anemia Hgb: 9.4 MCV: 90 * Peripheral smear: Leukocytosis with increased bands, normocytic normochromic anemia * Seems more iron deficiency anemia with anemia of chronic disease. She was also being worked up in the past for hemochromatosis. * Hgb decreased will recheck later today 6. HTN, Improved BP: 105/70-126/75 * She is currently in pain, but she stays her BP at home is 120s/70s 7. DMII B-246 * A1C: 7.0 * Metformin 1000 mg BID * SSI, Mild 8. Anxiety & Depression Previously on Duloxetine & Abilify * Will get Case Management involved to see if they can help pt in obtaining meds. 9. GERD Takes Protonix at home as needed * Will continue here Diet: NPO Lines: Peripheral Code Status: Full DVT Prophylaxis: SCDs, will hold lovenox for now due to surgery GI Prophylaxis: Protonix Dispo: Inpt, need to f/u on surgery recs for d/c. Addendum - Attending - Attending Attestation Date/Time: 02/27/19 1122 I personally evaluated the patient and discussed the management with Dr. Alicea I agree with the History, Examination, Assessment and Plan documented above with any addition or exceptions noted below. Patient doing well will need continue outpatient f/u DM, elevated LFTs and anemia defer dismissal plans to surgery.
[2019-02-27] MEDS ORDERED: tiZANidine HCl 4 MG TAB PO PRN (05:48)
[2019-02-27] MEDS: Insulin Regular 300 UNITS/3 ML VIAL SC PRN ×2 (06:34→12:18)
[2019-02-27] MEDS: Ketorolac Tromethamine 30 MG/ML VIAL IVP PRN ×2 (06:34→13:58)
[2019-02-27] MEDS ORDERED: metFORMIN 500 MG TAB PO SCH (08:00)
[2019-02-27] MEDS: Enoxaparin Sodium 40 MG/0.4 ML SYRINGE SC SCH (08:19)
[2019-02-27] MEDS: Famotidine 20 MG TAB PO SCH (08:19)
[2019-02-27] MEDS: Chlorhexidine Gluconate 15 ML UDCUP SSP SCH (08:19)
[2019-02-27 09:06] VITALS: BP 99/66; TEMP 98.7
--- NOTE | 2019-02-27 10:58 | PRG ---
DATE OF SERVICE: 02/27/2019 SUBJECTIVE: No acute 24-hour events. The patient is postoperative day #4, status post I and D of left-sided facial abscesses due to odontogenic source. OBJECTIVE: VITAL SIGNS: T-max 100 degrees Fahrenheit, T-current 98.7, pulse has been running in the 90s throughout her stay, respiratory rate 16 to 18, she is saturating 94% on room air, and blood pressure 125/82. GENERAL: She is awake, alert, and oriented x3. She is in no acute distress. HEENT: She has less left submandibular area tenderness and pain. Her opening actually has improved quite significantly. Her left buccal area is still quite firm and cellulitic, but slightly improved from yesterday. Her oropharynx is clear. There is no uvular deviation. There is no elevation of the floor of the mouth. There is no current active drainage. ASSESSMENT: The patient is improving. PLAN: We will have patient follow up at our office in 48 hours, this coming Thursday. The patient has a number to call for an appointment. Please send patient home on Augmentin 875 b.i.d. x7 days and Peridex 15 mL swish and spit t.i.d. and please give pain medicine as needed. The patient is to call if she has any increased pain, swelling, fever, or chills. Job ID: [id number]
[2019-02-27] MEDS ORDERED: Amoxicillin/Potassium Clav 875 MG TAB PO SCH (18:00)
--- NOTE | 2019-02-28 13:02 | DIS ---
DATE OF ADMISSION: 02/24/2019 DATE OF DISCHARGE: 02/27/2019 RESIDENT: Rashaun Alicea MD ADMITTING ATTENDING: Pablo Mckeon MD DISCHARGE ATTENDING: Cristobal Perez MD CONSULTS: Oral Maxillofacial Surgery- Dr. Hall PROCEDURES PERFORMED: * Chest x-ray (02/24/2019): showed no acute cardiopulmonary process. * EKG (02/24/2019): sinus tach, cannot rule out anterior infarct. * CT facial bones (02/24/19): Ill-defined inflammatory changes noted in the left perimandibular region along the inner and outer cortex of the angle of the mandible within the left masseter muscle and the platysma suggesting diffuse inflammatory infectious process as well. No discrete. Apical abscesses and there is significant dental caries involving the lateral aspect of the posterior left mandibular tooth and this may represent odontogenic infection. * incision and drainage of wound in the neck and mouth, extraction of dental tooth 11 (02/24/19). * Abdominal ultrasound on 02/25, showed increased echogenicity of liver, hepatic steatosis for hepatocellular disease must be considered. Limited evaluation and intrahepatic biliary dilatation or hepatic masses. PRIMARY DIAGNOSES: 1. Sepsis. 2. Tooth abscess. SECONDARY DIAGNOSES: 1. Hypertension. 2. Gastroesophageal reflux disease. 3. Anxiety. 4. Depression. 5. Diabetes. DISCHARGE MEDICATIONS: 1. Augmentin 875 b.i.d. 2. Chlorhexidine gluconate 15 mL swish and spit t.i.d. 3. Metformin 1000 mg p.o. q.a.m. DISCONTINUED MEDICATIONS: Unasyn. HISTORY OF PRESENT ILLNESS: The patient is a 33-year-old female with a history of normocytic anemia, diabetes type 2, hypertension, anxiety, depression, and morbid obesity, who presents with sepsis secondary to tooth abscess. She said she knew she had a cavity starting back in January. She was given amoxicillin on the 04 of February. She said that resolved the pain for about 10 days but this past Thursday on 02/20, she began developing pain. She got an appointment on 02/22. At the appointment, they decided to start her on Clinda and Tylenol #3 for pain. She says the pain has only gotten worse, so she called them up and they told her to come in for surgery. She had fevers, chills, fatigue, headache, abdominal pain every time she eats and difficulty swallowing. She also reports a history of decreased p.o. intake secondary to abdominal discomfort postprandial. In the ED, she was found to be septic with a temp of 101 and tachycardia. We obtained blood cultures, lactic acid. On labs, she had an elevated bilirubin of 5.2 and alk phos of 179. She was also found to be anemic at 9.4. Abdominal ultrasound on 02/25, showed increased echogenicity of liver, hepatic steatosis for hepatocellular disease must be considered. Limited evaluation and intrahepatic biliary dilatation or hepatic masses. 1. Sepsis secondary to tooth abscess. * Temp 101, tachycardia. Source of infection, tooth. * Previously on amoxicillin and clindamycin. * Obtained blood cultures, one out of two showed staph epidermidis, likely contaminant. * White blood cell count 10.1. * Procalcitonin 0.17. * Lactate 1.1. * Discharged with Augmentin. 2. Tooth abscess * CT head noted above. * I and D of abscess, 02/[address] Hall. * Wound gram stain, few white blood cells, no organisms or epithelial cells. * OMF has transitioned to p.o. pain meds and Augmentin 875 b.i.d. x10 days. 3. Elevated bilirubin. * T bilirubin 5.8. Direct bilirubin 2.3. Indirect bilirubin 2.9. * Right upper quadrant ultrasound results listed above. 4. Elevated alkaline phosphatase is 175. * GGT elevated at 104. 5. Normocytic anemia. * Hemoglobin 9.4, MCV 90. Peripheral smear. * Peripheral smear: Leukocytosis with increased bands and normocytic, normochromic anemia. * Iron deficiency anemia with anemia of chronic disease. She was also being worked up for hemochromatosis. 6. Hypertension, improved. * Blood pressure is elevated but after surgery, they came back down to 120s/ 70s. 7. Diabetes type 2. Blood sugars were 180 to 250. * A1c 7. * Metformin 1000 mg q.a.m. was started. 8. Anxiety and depression. * Previously on duloxetine and abilify, but stopped due to cost. * Consider restarting outpatient medications for anxiety and depression that is low cost. 9. GERD. * Protonix continued in the hospital. DISPOSITION: Stable. DISCHARGE INSTRUCTIONS: 1. Location: Home. 2. Diet: Liquid, Advance as tolerated. 3. Activity: As tolerated. 4. Followup: * Dr. Hall, supervisor heat treating in 2 weeks. * [facility], Dr. Sanders, followup in 7 days. Job ID: [id number] [facility]TD[facility]
== END 2019-02-27 14:45 | disposition home or self-care (01) | DRG 854 ==
LOC: ERS 11:53 → SDC 14:37 → SURG B 16:43
PROVIDERS: ADMIT Family Medicine; ATTEND Family Medicine
PROC: 0C940ZZ Drainage of Buccal Mucosa, Open Approach (ICD-10-PCS; principal; 2019-02-25)
PROC: 0CTW0Z0 Resection of Upper Tooth, Single, Open Approach (ICD-10-PCS; 2019-02-25)
DX: A41.9 Sepsis, unspecified organism (principal); Z68.43 Body mass index [BMI] 50.0-59.9, adult; K04.7 Periapical abscess without sinus; K21.9 Gastro-esophageal reflux disease without esophagitis; D64.9 Anemia, unspecified; I10 Essential (primary) hypertension; F41.9 Anxiety disorder, unspecified; E66.01 Morbid (severe) obesity due to excess calories; E11.9 Type 2 diabetes mellitus without complications; F32.9 Major depressive disorder, single episode, unspecified; E66.9 Obesity, unspecified; G47.33 Obstructive sleep apnea (adult) (pediatric); L73.2 Hidradenitis suppurativa; M51.36 Other intervertebral disc degeneration, lumbar region; Z87.891 Personal history of nicotine dependence; Z79.4 Long term (current) use of insulin
CPT/HCPCS: 36415; 36416; 70487; 71045; 76705; 80048; 80053; 82248; 82550; 82607; 82728; 82746; 82977; 83036; 83540; 83550; 83605; 83690; 84145; 85025; 85060; 85610; 85730; 87040; 87070; 87077; 87149; 87205; 93005; J0295; J0670; J1170; J1650; J1815; J1885; J2001; J2250; J2270; J2543; J3010; J3370; J3490; Q9966

== ENCOUNTER 2020-03-22 09:59 | Outpatient (CLI) | payer OTHER ==
--- NOTE | 2020-03-22 11:56 | ULT ---
RIGHT UPPER QUADRANT ULTRASOUND: Date: 03/22/2020 HISTORY: Right upper quadrant pain. FINDINGS: The liver demonstrates increased echogenicity consistent with fatty infiltration. No focal mass or in trahepatic ductal dilatation is seen. Shadowing 2.0 cm gallstone is present without gallbladder wall thickening or pericholecystic fluid. The common duct measures 8.0 mm in diameter. The right kidney an d visualized portions of the pancreas are unremarkable. No free fluid is seen in Morison's pouch. The exam is limited due to patient's body habitus. IMPRESSION: 1. Fatty liver. 2. Cholelithiasis. POS: AH
== END 2020-03-22 10:00 | disposition home or self-care (01) ==
LOC: SCSULT 09:59
PROVIDERS: ATTEND Family Medicine
DX: R10.11 Right upper quadrant pain (principal); K76.0 Fatty (change of) liver, not elsewhere classified; K80.20 Calculus of gallbladder without cholecystitis without obstruction
CPT/HCPCS: 76705

== ENCOUNTER 2021-06-10 12:54 | Outpatient (CLI) | payer OTHER ==
[2021-06-10 13:29] LABS: #Basophils 0.1 10x3/uL (0.0-0.2); #Eosinphils 0.1 10x3/uL (0.0-0.5); #Monocytes 0.3 10x3/uL (0.0-1.1); #Neutrophils 5.7 10x3/uL (1.5-8.4); %Basophils 0.7 % (0.0-2.0); %Eosinophils 0.9 % (0.0-6.0); %Lymphocytes 28.1 % (18.0-47.0); %Monocytes 3.4 % (0.0-10.0); %Neutrophils 65.3 % (40.0-75.0); Hemoglobin 9.2 g/dL (12.0-15.5); Mean Corpuscular HGB CONC 31.2 g/dL (32.0-36.0); Mean Corpuscular Hemoglobin 28.9 pg (27.0-33.0); Mean Corpuscular Volume 92.8 fl (81.6-98.3); Mean Platelet Volume 9.9 fl (7.4-10.4); Platelet Count 267 10x3/uL (150-450); RBC Distribution Width 23.3 % (11.5-14.5); Red Blood Cell (RBC) Count 3.18 10x6/uL (3.90-5.03); White Blood Cell (WBC) Count 8.8 10x3/uL (3.5-10.5)
[2021-06-10 13:37] LABS: BHCG - Serum Negative (NEGATIVE); Pregs Control Background? CLEAR/WHITE (CLR/WHITE); Pregs Control Bar Appear? YES (CONTROL BAR)
[2021-06-10 13:45] LABS: ALT (SGPT) 22 U/L (8-55); AST (SGOT) 26 U/L (5-34); Albumin 4.3 g/dL (3.5-5.0); Alkaline Phosphatase 119 U/L (40-110); Anion Gap 12 mmol/L (10-20); BUN (Urea Nitrogen) 10 mg/dL (7.0-18.7); Bilirubin, Total 3.9 mg/dL (0.2-1.2); Calc. Creatinine Clearance 0 mL/min (70-130); Calcium 9.5 mg/dL (7.8-10.44); Carbon Dioxide 26 mmol/L (22-29); Chloride 103 mmol/L (98-107); Globulin 2.4 g/dL (2.4-3.5); Glucose 261 mg/dL (70-105); Potassium 4.1 mmol/L (3.5-5.1); Protein, Total 6.7 g/dL (6.0-8.3); Sodium 137 mmol/L (136-145)
[2021-06-10 22:28] LABS: SARS-CoV-2 PCR by NAA Not Detected (NotDetected)
== END 2021-06-10 12:55 | disposition home or self-care (01) ==
LOC: LABBT 12:54
PROVIDERS: ATTEND Specialist
DX: Z01.812 Encounter for preprocedural laboratory examination (principal); Z20.822 Contact with and (suspected) exposure to COVID-19; K81.0 Acute cholecystitis
CPT/HCPCS: 80053; 84703; 85025; U0003; U0005

== ENCOUNTER 2021-06-12 06:53 | Day surgery (SDC) | payer OTHER ==
[2021-06-10 10:52] VITALS: BMI 54.8
[2021-06-12] MEDS ORDERED: Ketorolac Tromethamine 30 MG/ML VIAL ONE (07:51)
[2021-06-12] MEDS ORDERED: Acetaminophen 500 MG TAB ONE (07:51)
[2021-06-12] MEDS ORDERED: Levofloxacin 500 mg/D5W 100 ml Premix Bag ONE (09:06)
[2021-06-12] MEDS ORDERED: EPINEPHrine 1 MG/ML AMP ONE (09:21)
[2021-06-12] MEDS ORDERED: Bupivacaine 0.25% 10 ML VIAL ONE (09:21)
[2021-06-12] MEDS ORDERED: Iothalamate Meglumine 60% 50 ML VIAL FS ONE (09:21)
[2021-06-12] MEDS ORDERED: Lidocaine 1% (PF) 30 ML VIAL ONE (09:21)
[2021-06-12] MEDS ORDERED: Fentanyl 100 MCG/2 ML VIAL ONE ×3 (09:25→12:22)
[2021-06-12] MEDS ORDERED: Dexmedetomidine 200 MCG/2 ML VIAL ONE (09:25)
[2021-06-12] MEDS ORDERED: Glycopyrrolate 0.2 MG/ML 5 ML SYRINGE ONE (09:47)
[2021-06-12] MEDS ORDERED: ePHEDrine 50 MG/ML VIAL ONE (09:47)
[2021-06-12] MEDS ORDERED: PROPOFOL 200 MG/20 ML VIAL ONE (09:47)
[2021-06-12] MEDS ORDERED: Ondansetron PF 4 MG/2 ML Vial ONE (09:47)
[2021-06-12] MEDS ORDERED: Lidocaine 1% PF 5 ML VIAL ONE (09:47)
[2021-06-12] MEDS ORDERED: Rocuronium Bromide 10 MG/ML (10ML VIAL) ONE (09:47)
[2021-06-12] MEDS ORDERED: Dexamethasone 20 MG/5 ML VIAL ONE (09:47)
[2021-06-12] MEDS ORDERED: HYDROcodone/Acetaminophen 5/325 mg Tablet ONE (13:18)
== END 2021-06-12 14:25 | disposition home or self-care (01) ==
LOC: SDC 06:53
PROVIDERS: ATTEND Specialist
PROC: BF121ZZ Fluoroscopy of Gallbladder using Low Osmolar Contrast (ICD-10-PCS; principal; 2021-06-12)
PROC: 0FT44ZZ Resection of Gallbladder, Percutaneous Endoscopic Approach (ICD-10-PCS; principal; 2021-06-12)
DX: K80.12 Calculus of gallbladder with acute and chronic cholecystitis without obstruction (principal); K76.0 Fatty (change of) liver, not elsewhere classified; K66.0 Peritoneal adhesions (postprocedural) (postinfection); E11.9 Type 2 diabetes mellitus without complications; G47.30 Sleep apnea, unspecified; E66.01 Morbid (severe) obesity due to excess calories; Z68.43 Body mass index [BMI] 50.0-59.9, adult; Z87.891 Personal history of nicotine dependence; Z79.84 Long term (current) use of oral hypoglycemic drugs; Z79.899 Other long term (current) drug therapy; Z88.1 Allergy status to other antibiotic agents
CPT/HCPCS: 47532; 88304; C1713; J0171; J1100; J1610; J1885; J1956; J2001; J2405; J2704; J3010; J3490; Q9961-U8; S0020

== ENCOUNTER 2021-07-07 08:45 | Inpatient (IN) | payer BC ==
[2021-07-07] MEDS ORDERED: Dextrose 50% Abboject 50 ML SYRINGE SLOW IVP PRN (10:19)
[2021-07-07] MEDS ORDERED: Ondansetron ODT 4 MG TAB PO PRN (10:19)
[2021-07-07] MEDS ORDERED: Dextrose 5% in Water 1,000 ML IV PRN (10:19)
[2021-07-07] MEDS ORDERED: hydrALAZINE 20 MG/ML VIAL SLOW IVP PRN (10:19)
[2021-07-07 10:50] VITALS: BMI 56.5
[2021-07-07] MEDS: Morphine 4 MG/ML VIAL SLOW IVP PRN ×2 (10:59→20:27)
[2021-07-07] MEDS: Ondansetron PF 4 MG/2 ML Vial IVP PRN ×2 (13:46→20:27)
[2021-07-07] MEDS: Insulin Regular 300 UNITS/3 ML VIAL SC PRN (16:58)
[2021-07-07] MEDS ORDERED: tiZANidine HCl 4 MG TAB PO PRN (17:09)
[2021-07-07] MEDS: Sodium Chloride 0.45% 1,000 ML IV SCH ×2 (18:59→20:26)
[2021-07-07] MEDS: Gabapentin 300 MG CAP PO SCH (20:27)
[2021-07-07] MEDS: Citalopram 20 MG TAB PO SCH (20:27)
[2021-07-07] MEDS: Melatonin 3 MG TAB PO SCH (20:27)
[2021-07-07] MEDS ORDERED: Famotidine 20 MG TAB PO SCH (21:00)
[2021-07-08] MEDS: Morphine 4 MG/ML VIAL SLOW IVP PRN ×3 (02:07→20:59)
[2021-07-08 02:58] LABS: Hemoglobin A1c 6.4 % (4.0-6.0)
[2021-07-08 02:58] LABS: INR-International Normal Ratio 1.1; Prothrombin Time 14.6 sec (12.0-14.7)
[2021-07-08 02:59] LABS: #Basophils 0.1 thou/uL (0.0-0.2); #Eosinphils 0.2 thou/uL (0.0-0.7); #Lymphocytes 2.3 thou/uL (1.20-3.40); #Monocytes 0.6 thou/uL (0.11-0.59); #Neutrophils 7.9 thou/uL (1.40-6.50); %Basophils 0.6 % (0.0-1.0); %Eosinophils 1.6 % (0.0-10.0); %Lymphocytes 20.8 % (21.0-51.0); %Monocytes 5.2 % (0.0-10.0); %Neutrophils 71.8 % (42.0-75.0); Hemoglobin 7.9 g/dL (12.0-16.0); Mean Corpuscular HGB CONC 33.3 g/dL (32.0-36.0); Mean Corpuscular Hemoglobin 28.8 pg (27.0-31.0); Mean Corpuscular Volume 86.4 fL (78.0-98.0); Mean Platelet Volume 9.2 fL (7.4-10.4); Platelet Count 372 thou/uL (130-400); RBC Distribution Width 21.9 % (11.5-14.5); Red Blood Cell (RBC) Count 2.74 mill/uL (4.20-5.40)
[2021-07-08 03:21] LABS: ALT (SGPT) 38 U/L (8-55); AST (SGOT) 28 U/L (5-34); Albumin 3.7 g/dL (3.5-5.0); Alkaline Phosphatase 307 U/L (40-110); Anion Gap 15 mmol/L (10-20); BUN (Urea Nitrogen) 7 mg/dL (7.0-18.7); Bilirubin, Total 6.3 mg/dL (0.2-1.2); Calc. Creatinine Clearance 229 mL/min (70-130); Calcium 9.1 mg/dL (7.8-10.44); Carbon Dioxide 23 mmol/L (22-29); Chloride 102 mmol/L (98-107); Globulin 3.3 g/dL (2.4-3.5); Glucose 188 mg/dL (70-105); Potassium 4.1 mmol/L (3.5-5.1); Sodium 136 mmol/L (136-145)
[2021-07-08] MEDS: Sodium Chloride 0.45% 1,000 ML IV SCH ×2 (05:25→18:17)
[2021-07-08] MEDS: Insulin Regular 300 UNITS/3 ML VIAL SC PRN (05:36)
[2021-07-08] MEDS: Gabapentin 300 MG CAP PO SCH ×2 (08:35→20:48)
[2021-07-08] MEDS ORDERED: Pantoprazole 40 MG VIAL IVP SCH (09:00)
[2021-07-08] MEDS ORDERED: Iothalamate Meglumine 60% 50 ML VIAL FS ONE (09:25)
[2021-07-08] MEDS ORDERED: Indomethacin 50 MG SUPP ONE (10:26)
[2021-07-08] MEDS ORDERED: Levofloxacin 500 mg/D5W 100 ml Premix Bag ONE (10:34)
[2021-07-08] MEDS ORDERED: Fentanyl 100 MCG/2 ML VIAL ONE ×3 (10:40→12:53)
[2021-07-08] MEDS ORDERED: Lidocaine 1% PF 5 ML VIAL ONE (10:42)
[2021-07-08] MEDS ORDERED: Glycopyrrolate 0.2 MG/ML 5 ML SYRINGE ONE (10:42)
[2021-07-08] MEDS ORDERED: PROPOFOL 200 MG/20 ML VIAL ONE (10:42)
[2021-07-08] MEDS ORDERED: Succinylcholine 200 MG/10 ml SYRINGE FS ONE (10:42)
[2021-07-08] MEDS ORDERED: Dexamethasone 20 MG/5 ML VIAL ONE (10:42)
[2021-07-08] MEDS ORDERED: Rocuronium Bromide 10 MG/ML (10ML VIAL) ONE (10:42)
[2021-07-08] MEDS ORDERED: Ondansetron PF 4 MG/2 ML Vial ONE (10:42)
[2021-07-08] MEDS: Melatonin 3 MG TAB PO SCH (20:47)
[2021-07-08] MEDS: Citalopram 20 MG TAB PO SCH (20:48)
[2021-07-09] MEDS: Insulin Regular 300 UNITS/3 ML VIAL SC PRN (01:19)
[2021-07-09] MEDS: Sodium Chloride 0.45% 1,000 ML IV SCH (03:30)
[2021-07-09 06:48] LABS: Band 5 % (5-11); Hemoglobin 7.2 g/dL (12.0-16.0); Hypochromia SLIGHT = 6-15 cells (100X) (0-5/hpf); Lymphocytes 17 % (21-51); MDiff Complete? YES; Mean Corpuscular Hemoglobin 28.1 pg (27.0-31.0); Mean Corpuscular Volume 87.7 fL (78.0-98.0); Mean Platelet Volume 8.7 fL (7.4-10.4); Monocytes 5 % (0-10); Neutrophil 73 % (42-75); Platelet Count 348 thou/uL (130-400); Platelet Morphology Comment Appears Adequate; RBC Distribution Width 21.8 % (11.5-14.5); Red Blood Cell (RBC) Count 2.57 mill/uL (4.20-5.40); White Blood Cell (WBC) Count 10.6 thou/uL (4.8-10.8)
[2021-07-09 06:49] LABS: ALT (SGPT) 44 U/L (8-55); AST (SGOT) 26 U/L (5-34); Albumin 3.5 g/dL (3.5-5.0); Alkaline Phosphatase 317 U/L (40-110); Anion Gap 14 mmol/L (10-20); BUN (Urea Nitrogen) 10 mg/dL (7.0-18.7); Bilirubin, Total 5.6 mg/dL (0.2-1.2); Calc. Creatinine Clearance 249 mL/min (70-130); Calcium 8.8 mg/dL (7.8-10.44); Carbon Dioxide 24 mmol/L (22-29); Chloride 101 mmol/L (98-107); Globulin 3.2 g/dL (2.4-3.5); Glucose 177 mg/dL (70-105); Potassium 4.4 mmol/L (3.5-5.1); Protein, Total 6.7 g/dL (6.0-8.3); Sodium 135 mmol/L (136-145)
[2021-07-09] MEDS: Morphine 4 MG/ML VIAL SLOW IVP PRN (06:52)
[2021-07-09] MEDS ORDERED: traMADol HCl 50 MG TAB PO PRN (09:11)
[2021-07-09] MEDS ORDERED: Acetaminophen 500 MG TAB PO PRN (09:11)
[2021-07-09 09:13] VITALS: BP 119/71; TEMP 98.3
== END 2021-07-09 12:18 | disposition home or self-care (01) | DRG 445 ==
LOC: SURG B 09:35
PROVIDERS: ADMIT Specialist; ATTEND Specialist
PROC: 30233N1 Transfusion of Nonautologous Red Blood Cells into Peripheral Vein, Percutaneous Approach (ICD-10-PCS; 2021-07-07)
PROC: 0F9980Z Drainage of Common Bile Duct with Drainage Device, Via Natural or Artificial Opening Endoscopic (ICD-10-PCS; principal; 2021-07-08)
PROC: BF101ZZ Fluoroscopy of Bile Ducts using Low Osmolar Contrast (ICD-10-PCS; 2021-07-08)
DX: K83.8 Other specified diseases of biliary tract (principal); Z68.43 Body mass index [BMI] 50.0-59.9, adult; Z20.822 Contact with and (suspected) exposure to COVID-19; E66.01 Morbid (severe) obesity due to excess calories; E11.9 Type 2 diabetes mellitus without complications; G89.29 Other chronic pain; M54.9 Dorsalgia, unspecified; E80.6 Other disorders of bilirubin metabolism; K76.0 Fatty (change of) liver, not elsewhere classified; G47.30 Sleep apnea, unspecified; D64.9 Anemia, unspecified; E88.81 Metabolic syndrome and other insulin resistance; Z79.1 Long term (current) use of non-steroidal anti-inflammatories (NSAID); Z88.1 Allergy status to other antibiotic agents; Z88.8 Allergy status to other drugs, medicaments and biological substances; Z79.899 Other long term (current) drug therapy; Z79.82 Long term (current) use of aspirin; Z87.891 Personal history of nicotine dependence; Z98.890 Other specified postprocedural states; Z90.49 Acquired absence of other specified parts of digestive tract; Z79.84 Long term (current) use of oral hypoglycemic drugs
CPT/HCPCS: 36415; 36416; 36430; 74330; 78226; 80053; 82247; 82248; 82607; 82746; 83036; 85025; 85610; 86850; 86900; 86901; A9537; C2617; C9113; J1100; J1815; J1956; J2270; J2405; J2704; J3010; P9016; Q9961-U8

== ENCOUNTER 2021-07-14 08:41 | Inpatient (IN) | payer BC ==
[2021-07-14] MEDS ORDERED: Iopamidol 370 76% 100 ML VIAL ONE (09:26)
[2021-07-14 11:55] LABS: BHCG - Serum Negative (NEGATIVE); Pregs Control Background? CLEAR/WHITE (CLR/WHITE); Pregs Control Bar Appear? YES (CONTROL BAR)
[2021-07-14 12:05] LABS: ALT (SGPT) 72 U/L (8-55); AST (SGOT) 46 U/L (5-34); Albumin 3.5 g/dL (3.5-5.0); Alkaline Phosphatase 425 U/L (40-110); Anion Gap 14 mmol/L (10-20); BUN (Urea Nitrogen) 8 mg/dL (7.0-18.7); Bilirubin, Total 7.6 mg/dL (0.2-1.2); Calc. Creatinine Clearance 0 mL/min (70-130); Calcium 9.2 mg/dL (7.8-10.44); Carbon Dioxide 23 mmol/L (22-29); Chloride 102 mmol/L (98-107); Globulin 3.4 g/dL (2.4-3.5); Glucose 151 mg/dL (70-105); Lipase Less than 4 U/L (8-78); Protein, Total 6.9 g/dL (6.0-8.3); Sodium 135 mmol/L (136-145)
[2021-07-14 12:09] LABS: #Lymphocytes 1.7 thou/uL (1.20-3.40); #Monocytes 0.4 thou/uL (0.11-0.59); #Neutrophils 7.7 thou/uL (1.40-6.50); %Basophils 0.3 % (0.0-1.0); %Eosinophils 0.5 % (0.0-10.0); %Lymphocytes 17.1 % (21.0-51.0); %Monocytes 4.1 % (0.0-10.0); %Neutrophils 78.1 % (42.0-75.0); Anisocytosis MODERATE=16-30 cells (100X) (0-5/hpf); Hemoglobin 7.9 g/dL (12.0-16.0); MDiff Complete? YES; Mean Corpuscular HGB CONC 33.3 g/dL (32.0-36.0); Mean Corpuscular Hemoglobin 29.1 pg (27.0-31.0); Mean Corpuscular Volume 87.4 fL (78.0-98.0); Mean Platelet Volume 9.5 fL (7.4-10.4); Platelet Count 331 thou/uL (130-400); Polychromasia SLIGHT = 2-3 cells (100X) (0-2/hpf); Red Blood Cell (RBC) Count 2.73 mill/uL (4.20-5.40); White Blood Cell (WBC) Count 9.8 thou/uL (4.8-10.8)
[2021-07-14] MEDS ORDERED: Morphine 4 MG/ML VIAL ONE (12:26)
[2021-07-14] MEDS ORDERED: Ondansetron PF 4 MG/2 ML Vial ONE (12:26)
[2021-07-14 13:12] LABS: Bilirubin 2+ (Negative); Blood, Urine 1+ (Negative); Clarity Clear (Clear); Glucose, Urine (Dipstick) Normal (Negative); Ketone, Urine 80 mg/dL (Negative); Leukocyte Negative Leu/uL (Negative); Nitrite Negative (Negative); Protein, Urine (Dipstick) 30 mg/dL (Neg-Trace); RBC/HPF 0-3 HPF (0-3); Specific Gravity, Urine 1.023 (1.002-1.036); Squamous Epithelial 0-3 HPF (0-3)
[2021-07-14 13:13] LABS: Bacteria/HPF 1+ HPF (None Seen)
[2021-07-14] MEDS ORDERED: Sodium Chloride 0.9% 1,000 ML IV SCH (16:15)
[2021-07-14] MEDS ORDERED: Ondansetron ODT 4 MG TAB SL PRN (16:15)
[2021-07-14] MEDS ORDERED: Ondansetron PF 4 MG/2 ML Vial IVP PRN (16:15)
[2021-07-14 16:34] VITALS: BMI 53.9
[2021-07-14] MEDS ORDERED: Promethazine HCl 25 MG/ML VIAL IM PRN (19:30)
[2021-07-14] MEDS ORDERED: Mag-Al 1200 mg/1200 mg/30 ML UDCUP PO PRN (19:30)
[2021-07-14] MEDS ORDERED: Dextrose 50% Abboject 50 ML SYRINGE SLOW IVP PRN (19:30)
[2021-07-14] MEDS ORDERED: hydrALAZINE 20 MG/ML VIAL SLOW IVP PRN (19:30)
[2021-07-14] MEDS ORDERED: Dextrose 5% in Water 1,000 ML IV PRN (19:30)
[2021-07-14] MEDS ORDERED: Calcium Carbonate 500 MG ChewTAB PO PRN (19:30)
[2021-07-14] MEDS: D5 1/2 NS w/20 mEq KCL 1,000 ML IV SCH (19:58)
[2021-07-14] MEDS: Morphine 4 MG/ML VIAL SLOW IVP PRN (19:59)
[2021-07-14] MEDS: Citalopram 20 MG TAB PO SCH (20:08)
[2021-07-14] MEDS: Gabapentin 300 MG CAP PO SCH (20:09)
[2021-07-14] MEDS: Famotidine/PF 20 mg/2ml Vial SLOW IVP SCH (20:09)
[2021-07-14] MEDS: tiZANidine HCl 4 MG TAB PO SCH (20:10)
[2021-07-14] MEDS: HYDROcodone/Acetaminophen 10/325 mg Tablet PO PRN (21:28)
[2021-07-14] MEDS: Famotidine 20 MG TAB PO SCH (21:30)
[2021-07-15] MEDS: Ondansetron PF 4 MG/2 ML Vial IVP PRN ×2 (00:31→14:55)
[2021-07-15] MEDS: Morphine 4 MG/ML VIAL SLOW IVP PRN ×5 (00:34→14:53)
[2021-07-15] MEDS: D5 1/2 NS w/20 mEq KCL 1,000 ML IV SCH ×2 (04:11→11:40)
[2021-07-15] MEDS: HYDROcodone/Acetaminophen 10/325 mg Tablet PO PRN ×2 (06:43→16:52)
[2021-07-15 06:58] LABS: #Eosinphils 0.1 thou/uL (0.0-0.7); #Lymphocytes 1.6 thou/uL (1.20-3.40); #Monocytes 0.7 thou/uL (0.11-0.59); #Neutrophils 6.9 thou/uL (1.40-6.50); %Basophils 0.2 % (0.0-1.0); %Eosinophils 0.6 % (0.0-10.0); %Lymphocytes 17.4 % (21.0-51.0); %Monocytes 7.1 % (0.0-10.0); %Neutrophils 74.8 % (42.0-75.0); Hemoglobin 7.5 g/dL (12.0-16.0); Mean Corpuscular Hemoglobin 28.4 pg (27.0-31.0); Mean Corpuscular Volume 88.8 fL (78.0-98.0); Mean Platelet Volume 9.2 fL (7.4-10.4); Platelet Count 340 thou/uL (130-400); RBC Distribution Width 22.6 % (11.5-14.5); Red Blood Cell (RBC) Count 2.63 mill/uL (4.20-5.40); White Blood Cell (WBC) Count 9.3 thou/uL (4.8-10.8)
[2021-07-15 07:18] LABS: INR-International Normal Ratio 1.1; Prothrombin Time 14.7 sec (12.0-14.7)
[2021-07-15 07:20] LABS: ALT (SGPT) 53 U/L (8-55); AST (SGOT) 27 U/L (5-34); Albumin 3.4 g/dL (3.5-5.0); Alkaline Phosphatase 393 U/L (40-110); Anion Gap 11 mmol/L (10-20); BUN (Urea Nitrogen) 7 mg/dL (7.0-18.7); Bilirubin, Total 4.2 mg/dL (0.2-1.2); Calc. Creatinine Clearance 242 mL/min (70-130); Calcium 8.9 mg/dL (7.8-10.44); Carbon Dioxide 25 mmol/L (22-29); Chloride 103 mmol/L (98-107); Globulin 3.4 g/dL (2.4-3.5); Glucose 219 mg/dL (70-105); Potassium 4.1 mmol/L (3.5-5.1); Protein, Total 6.8 g/dL (6.0-8.3); Sodium 135 mmol/L (136-145)
[2021-07-15] MEDS: Famotidine/PF 20 mg/2ml Vial SLOW IVP SCH (08:11)
[2021-07-15] MEDS: Famotidine 20 MG TAB PO SCH ×2 (08:18→22:01)
[2021-07-15] MEDS: Gabapentin 300 MG CAP PO SCH ×2 (09:56→22:00)
[2021-07-15] MEDS ORDERED: Ondansetron PF 4 MG/2 ML Vial ONE (14:42)
[2021-07-15] MEDS ORDERED: Morphine 4 MG/ML VIAL ONE (14:42)
[2021-07-15] MEDS: tiZANidine HCl 4 MG TAB PO SCH (22:00)
[2021-07-15] MEDS: Citalopram 20 MG TAB PO SCH (22:01)
[2021-07-16 04:09] LABS: Clarity Cloudy/Turbid (Clear); Tube # EDTA
[2021-07-16 05:34] LABS: BF RBC Count - Manual 15 /cu.mm; BF WBC/Nonhematics Ct.-Manual 508 /cu.mm
[2021-07-16 05:35] LABS: BF Segmented Neutrophils 50 %; Cell Count Non Hematic 41 %; Lymphocytes 9 %
[2021-07-16] MEDS: Gabapentin 300 MG CAP PO SCH (08:56)
[2021-07-16] MEDS: Famotidine 20 MG TAB PO SCH (08:56)
[2021-07-16 09:36] LABS: #Eosinphils 0.1 thou/uL (0.0-0.7); #Lymphocytes 1.5 thou/uL (1.20-3.40); #Monocytes 0.6 thou/uL (0.11-0.59); #Neutrophils 8.4 thou/uL (1.40-6.50); %Basophils 0.3 % (0.0-1.0); %Eosinophils 0.6 % (0.0-10.0); %Lymphocytes 14.3 % (21.0-51.0); %Monocytes 5.3 % (0.0-10.0); %Neutrophils 79.5 % (42.0-75.0); Hemoglobin 7.1 g/dL (12.0-16.0); Mean Corpuscular Hemoglobin 27.8 pg (27.0-31.0); Mean Corpuscular Volume 87.1 fL (78.0-98.0); Platelet Count 336 thou/uL (130-400); RBC Distribution Width 24.1 % (11.5-14.5); Red Blood Cell (RBC) Count 2.55 mill/uL (4.20-5.40); White Blood Cell (WBC) Count 10.6 thou/uL (4.8-10.8)
[2021-07-16 10:01] LABS: ALT (SGPT) 36 U/L (8-55); AST (SGOT) 16 U/L (5-34); Albumin 3.2 g/dL (3.5-5.0); Alkaline Phosphatase 362 U/L (40-110); Anion Gap 10 mmol/L (10-20); BUN (Urea Nitrogen) 5 mg/dL (7.0-18.7); Bilirubin, Total 3.9 mg/dL (0.2-1.2); Calc. Creatinine Clearance 248 mL/min (70-130); Carbon Dioxide 28 mmol/L (22-29); Chloride 101 mmol/L (98-107); Globulin 3.3 g/dL (2.4-3.5); Glucose 202 mg/dL (70-105); Protein, Total 6.5 g/dL (6.0-8.3); Sodium 135 mmol/L (136-145)
[2021-07-16 12:24] VITALS: BP 126/78
[2021-07-16 14:28] VITALS: TEMP 99
== END 2021-07-16 14:28 | disposition home or self-care (01) | DRG 445 ==
LOC: ERS 08:41 → SURG A 13:41
PROVIDERS: ADMIT Surgery; ATTEND Surgery
PROC: 0F9930Z Drainage of Common Bile Duct with Drainage Device, Percutaneous Approach (ICD-10-PCS; principal; 2021-07-15)
DX: K83.8 Other specified diseases of biliary tract (principal); Z68.43 Body mass index [BMI] 50.0-59.9, adult; E88.81 Metabolic syndrome and other insulin resistance; E66.01 Morbid (severe) obesity due to excess calories; D64.9 Anemia, unspecified; E11.9 Type 2 diabetes mellitus without complications; Z79.899 Other long term (current) drug therapy; Z83.2 Family history of diseases of the blood and blood-forming organs and certain disorders involving the immune mechanism; Z79.84 Long term (current) use of oral hypoglycemic drugs
CPT/HCPCS: 36415; 36416; 49020; 74177; 76942; 80053; 81003; 81015; 82150; 82247; 82465; 82570; 82945; 83615; 83690; 83986; 84157; 84478; 84703; 85025; 85060; 85610; 85730; 87070; 87205; 89051; 89060; 94760; 96374; 96375; C1729; J2270; J2405; J3480; J7050; Q9967; S0028

== ENCOUNTER 2021-07-20 19:06 | Inpatient (IN) | payer BC ==
[~2021-07-20 19:06] MED LIST changes: -Fentanyl 100 MCG/2 ML VIAL ONE; -HYDROmorphone 0.5 MG/0.5 ML SYRINGE ONE; +Iopamidol 370 76% 100 ML VIAL ONE; -Lidocaine 2% Jelly 5 ML TUBE ONE; -Midazolam HCl 2 mg/2 ml Vial ONE; -Oxymetazoline HCl 0.05% ( 15 ML ) ONE
[2021-07-20] MEDS ORDERED: Ondansetron PF 4 MG/2 ML Vial ONE (19:26)
[2021-07-20 19:59] LABS: #Basophils 0.1 thou/uL (0.0-0.2); #Eosinphils 0.1 thou/uL (0.0-0.7); #Lymphocytes 1.5 thou/uL (1.20-3.40); #Monocytes 0.5 thou/uL (0.11-0.59); #Neutrophils 7.3 thou/uL (1.40-6.50); %Basophils 0.7 % (0.0-1.0); %Eosinophils 0.9 % (0.0-10.0); %Lymphocytes 15.4 % (21.0-51.0); %Monocytes 5.7 % (0.0-10.0); %Neutrophils 77.3 % (42.0-75.0); BHCG - Serum Negative (NEGATIVE); Hemoglobin 6.4 g/dL (12.0-16.0); Mean Corpuscular Hemoglobin 27.8 pg (27.0-31.0); Mean Corpuscular Volume 84.2 fL (78.0-98.0); Mean Platelet Volume 9.6 fL (7.4-10.4); Platelet Count 372 thou/uL (130-400); Pregs Control Background? CLEAR/WHITE (CLR/WHITE); Pregs Control Bar Appear? YES (CONTROL BAR); RBC Distribution Width 23.9 % (11.5-14.5); White Blood Cell (WBC) Count 9.5 thou/uL (4.8-10.8)
[2021-07-20 20:20] LABS: ALT (SGPT) 37 U/L (8-55); AST (SGOT) 26 U/L (5-34); Albumin 3.1 g/dL (3.5-5.0); Alkaline Phosphatase 340 U/L (40-110); Anion Gap 13 mmol/L (10-20); BUN (Urea Nitrogen) 7 mg/dL (7.0-18.7); Bilirubin, Total 3.8 mg/dL (0.2-1.2); Calc. Creatinine Clearance 0 mL/min (70-130); Calcium 8.9 mg/dL (7.8-10.44); Carbon Dioxide 26 mmol/L (22-29); Chloride 100 mmol/L (98-107); Globulin 3.3 g/dL (2.4-3.5); Glucose 308 mg/dL (70-105); Lipase 23 U/L (8-78); Potassium 4.2 mmol/L (3.5-5.1); Protein, Total 6.4 g/dL (6.0-8.3); Sodium 135 mmol/L (136-145)
[2021-07-20 22:05] LABS: Bilirubin 1+ (Negative); Blood, Urine Negative (Negative); Clarity Clear (Clear); Glucose, Urine (Dipstick) Greater than 1000 mg/dL (Negative); Ketone, Urine Negative (Negative); Leukocyte Negative Leu/uL (Negative); Nitrite Negative (Negative); Protein, Urine (Dipstick) 20 mg/dL (Neg-Trace); Specific Gravity, Urine 1.035 (1.002-1.036); pH, Urine 6.5 (5.0-9.0)
[2021-07-20] MEDS ORDERED: Dextrose 50% Abboject 50 ML SYRINGE SLOW IVP PRN (22:36)
[2021-07-20] MEDS ORDERED: HumaLOG 300 UNITS/3 ML VIAL SC PRN (22:36)
[2021-07-20] MEDS ORDERED: Dextrose 5% in Water 1,000 ML IV PRN (22:36)
[2021-07-20] MEDS ORDERED: Lactated Ringer's 1,000 ML IV SCH (22:45)
[2021-07-20] MEDS ORDERED: Ibuprofen 200 MG TAB ONE (23:01)
[2021-07-20] MEDS ORDERED: Piperacillin/Tazobactam 4.5 GM VIAL ONE (23:02)
[2021-07-20 23:36] LABS: Hemoglobin A1c 7.4 % (4.0-6.0)
[2021-07-20 23:57] VITALS: BMI 51.4
[2021-07-20] MEDS ORDERED: metroNIDAZOLE 500 MG in Premix Bag 1 BAG IVPB SCH (23:59)
[2021-07-21] MEDS ORDERED: Cefepime 2 GM in Sodium Chloride 0.9% 100 ML IVPB SCH (02:00)
[2021-07-21] MEDS: Ondansetron PF 4 MG/2 ML Vial IVP PRN ×3 (02:48→20:01)
[2021-07-21] MEDS: metroNIDAZOLE 500 MG in Premix Bag 1 BAG IVPB SCH ×2 (03:31→14:59)
[2021-07-21] MEDS: Cefepime 2 GM in Sodium Chloride 0.9% 100 ML IVPB SCH ×2 (04:38→13:08)
[2021-07-21 08:08] LABS: #Eosinphils 0.1 thou/uL (0.0-0.7); #Lymphocytes 1.6 thou/uL (1.20-3.40); #Monocytes 0.6 thou/uL (0.11-0.59); #Neutrophils 5.9 thou/uL (1.40-6.50); %Basophils 0.2 % (0.0-1.0); %Eosinophils 1.6 % (0.0-10.0); %Lymphocytes 19.7 % (21.0-51.0); %Monocytes 6.9 % (0.0-10.0); %Neutrophils 71.6 % (42.0-75.0); Hemoglobin 6.4 g/dL (12.0-16.0); Mean Corpuscular HGB CONC 32.9 g/dL (32.0-36.0); Mean Corpuscular Hemoglobin 28.3 pg (27.0-31.0); Mean Platelet Volume 9.2 fL (7.4-10.4); Platelet Count 339 thou/uL (130-400); RBC Distribution Width 21.1 % (11.5-14.5); Red Blood Cell (RBC) Count 2.27 mill/uL (4.20-5.40); White Blood Cell (WBC) Count 8.3 thou/uL (4.8-10.8)
[2021-07-21 08:19] LABS: ALT (SGPT) 29 U/L (8-55); AST (SGOT) 18 U/L (5-34); Albumin 2.9 g/dL (3.5-5.0); Alkaline Phosphatase 273 U/L (40-110); Anion Gap 11 mmol/L (10-20); BUN (Urea Nitrogen) 7 mg/dL (7.0-18.7); Bilirubin, Total 4.4 mg/dL (0.2-1.2); Calc. Creatinine Clearance 264 mL/min (70-130); Calcium 8.6 mg/dL (7.8-10.44); Carbon Dioxide 26 mmol/L (22-29); Chloride 103 mmol/L (98-107); Globulin 2.9 g/dL (2.4-3.5); Glucose 186 mg/dL (70-105); Potassium 3.8 mmol/L (3.5-5.1); Protein, Total 5.8 g/dL (6.0-8.3); Sodium 136 mmol/L (136-145)
[2021-07-21] MEDS: metFORMIN XR 500 MG TAB PO SCH ×2 (09:02→20:05)
[2021-07-21] MEDS: Gabapentin 300 MG CAP PO SCH ×2 (09:02→20:04)
[2021-07-21 09:15] LABS: Hemoglobin 6.6 g/dL (12.0-16.0); Mean Corpuscular HGB CONC 33.4 g/dL (32.0-36.0); Mean Corpuscular Hemoglobin 28.7 pg (27.0-31.0); Mean Corpuscular Volume 86.1 fL (78.0-98.0); Mean Platelet Volume 9.3 fL (7.4-10.4); Platelet Count 334 thou/uL (130-400); RBC Distribution Width 21.2 % (11.5-14.5); Red Blood Cell (RBC) Count 2.29 mill/uL (4.20-5.40); White Blood Cell (WBC) Count 7.9 thou/uL (4.8-10.8)
[2021-07-21 15:29] LABS: SARS-CoV-2 PCR by NAA Not Detected (NotDetected)
[2021-07-21] MEDS ORDERED: Piperacillin/Tazobactam 3.375 GM in Sodium Chloride 0.9% 100 ML IVPB SCH (15:45)
[2021-07-21] MEDS: Ibuprofen 600 MG TAB PO PRN (17:44)
[2021-07-21] MEDS ORDERED: Piperacillin/Tazobactam 4.5 GM in Sodium Chloride 0.9% 100 ML IVPB SCH (18:00)
[2021-07-21] MEDS: Piperacillin/Tazobactam 3.375 GM in Sodium Chloride 0.9% 100 ML IVPB SCH (20:02)
[2021-07-21] MEDS: Melatonin 3 MG TAB PO SCH (20:04)
[2021-07-21] MEDS: Citalopram 20 MG TAB PO SCH (20:04)
[2021-07-21] MEDS: tiZANidine HCl 4 MG TAB PO SCH (20:05)
[2021-07-22 00:51] LABS: Hemoglobin 7.3 g/dL (12.0-16.0)
[2021-07-22 01:09] LABS: Anion Gap 11 mmol/L (10-20); BUN (Urea Nitrogen) 9 mg/dL (7.0-18.7); Calc. Creatinine Clearance 210 mL/min (70-130); Calcium 8.9 mg/dL (7.8-10.44); Carbon Dioxide 27 mmol/L (22-29); Chloride 103 mmol/L (98-107); Glucose 230 mg/dL (70-105); Potassium 4.6 mmol/L (3.5-5.1); Sodium 136 mmol/L (136-145)
[2021-07-22] MEDS: Piperacillin/Tazobactam 3.375 GM in Sodium Chloride 0.9% 100 ML IVPB SCH ×3 (04:02→20:38)
[2021-07-22] MEDS: HumaLOG 300 UNITS/3 ML VIAL SC PRN ×2 (05:54→12:19)
[2021-07-22] MEDS: Ondansetron PF 4 MG/2 ML Vial IVP PRN (07:44)
[2021-07-22] MEDS: Gabapentin 300 MG CAP PO SCH ×2 (08:35→21:32)
[2021-07-22] MEDS: metFORMIN XR 500 MG TAB PO SCH (08:36)
[2021-07-22] MEDS: Ibuprofen 600 MG TAB PO PRN (11:17)
[2021-07-22] MEDS ORDERED: metFORMIN XR 500 MG TAB PO SCH (17:30)
[2021-07-22] MEDS: Citalopram 20 MG TAB PO SCH (21:32)
[2021-07-22] MEDS: Melatonin 3 MG TAB PO SCH (21:33)
[2021-07-22] MEDS: tiZANidine HCl 4 MG TAB PO SCH (21:34)
[2021-07-23] MEDS: Ibuprofen 600 MG TAB PO PRN (00:05)
[2021-07-23] MEDS: Piperacillin/Tazobactam 3.375 GM in Sodium Chloride 0.9% 100 ML IVPB SCH ×2 (04:18→11:53)
[2021-07-23] MEDS: HumaLOG 300 UNITS/3 ML VIAL SC PRN ×2 (06:16→11:53)
[2021-07-23] MEDS: Gabapentin 300 MG CAP PO SCH (07:56)
[2021-07-23] MEDS ORDERED: metFORMIN XR 500 MG TAB PO SCH (08:00)
[2021-07-23 16:30] VITALS: BP 143/66; TEMP 98.5
[2021-07-23] MEDS ORDERED: Amoxicillin/Potassium Clav 500 MG TAB PO SCH (21:00)
== END 2021-07-23 18:20 | disposition home or self-care (01) | DRG 394 ==
LOC: ERS 19:06 → SJJU 22:08 → OBSVTOIN 07-22 10:49
PROVIDERS: ADMIT Family Medicine; ATTEND Family Medicine
PROC: 30233N1 Transfusion of Nonautologous Red Blood Cells into Peripheral Vein, Percutaneous Approach (ICD-10-PCS; principal; 2021-07-21)
DX: K91.89 Other postprocedural complications and disorders of digestive system (principal); Z68.43 Body mass index [BMI] 50.0-59.9, adult; Z20.822 Contact with and (suspected) exposure to COVID-19; E66.01 Morbid (severe) obesity due to excess calories; D64.9 Anemia, unspecified; E11.9 Type 2 diabetes mellitus without complications; F32.9 Major depressive disorder, single episode, unspecified; F41.1 Generalized anxiety disorder; L73.2 Hidradenitis suppurativa; F41.9 Anxiety disorder, unspecified; F32.A Depression, unspecified; Y83.8 Other surgical procedures as the cause of abnormal reaction of the patient, or of later complication, without mention of misadventure at the time of the procedure; Z88.8 Allergy status to other drugs, medicaments and biological substances; Z79.84 Long term (current) use of oral hypoglycemic drugs; Z79.899 Other long term (current) drug therapy; Z90.49 Acquired absence of other specified parts of digestive tract; Z90.710 Acquired absence of both cervix and uterus; Z87.891 Personal history of nicotine dependence; B95.4 Other streptococcus as the cause of diseases classified elsewhere
CPT/HCPCS: 36415; 36416; 36430; 74177; 80048; 80053; 81003; 82274; 83036; 83605; 83690; 84703; 85014; 85018; 85025; 86850; 86900; 86901; 87040; 87070; 87077; 87186; 87205; 96367; 96376; G0378; J0692; J1815; J2405; J2543; J3490; J7120; P9016; Q9967; U0003; U0005

== ENCOUNTER 2021-08-09 15:01 | Outpatient (CLI) | payer BC ==
[2021-08-10 00:17] LABS: SARS-CoV-2 PCR by NAA Not Detected (NotDetected)
== END 2021-08-09 15:02 | disposition home or self-care (01) ==
LOC: LABBT 15:01
PROVIDERS: ATTEND Internal Medicine Gastroenterology
DX: K91.89 Other postprocedural complications and disorders of digestive system (principal); Z20.822 Contact with and (suspected) exposure to COVID-19
CPT/HCPCS: U0003; U0005

== ENCOUNTER 2021-08-14 06:08 | Day surgery (SDC) | payer BC ==
[2021-08-08 13:21] VITALS: BMI 50.8
[2021-08-14] MEDS ORDERED: Indomethacin 50 MG SUPP ONE (07:17)
[2021-08-14] MEDS ORDERED: Iothalamate Meglumine 60% 50 ML VIAL FS ONE (07:17)
[2021-08-14] MEDS ORDERED: Famotidine/PF 20 mg/2ml Vial ONE (07:21)
[2021-08-14] MEDS ORDERED: Levofloxacin 500 mg/D5W 100 ml Premix Bag ONE (07:43)
[2021-08-14] MEDS ORDERED: Ondansetron PF 4 MG/2 ML Vial ONE (07:47)
[2021-08-14] MEDS ORDERED: Metoclopramide HCl 10 MG/2 ML VIAL ONE (07:47)
[2021-08-14] MEDS ORDERED: PROPOFOL 200 MG/20 ML VIAL ONE (07:47)
[2021-08-14] MEDS ORDERED: Lidocaine 1% PF 5 ML VIAL ONE (07:47)
[2021-08-14] MEDS ORDERED: Rocuronium Bromide 10 MG/ML (10ML VIAL) ONE (07:47)
[2021-08-14] MEDS ORDERED: Succinylcholine 200 MG/10 ml SYRINGE FS ONE (07:47)
[2021-08-14] MEDS ORDERED: Fentanyl 250 MCG/5 ML VIAL ONE (08:46)
[2021-08-14] MEDS ORDERED: HYDROmorphone 2 MG/ML VIAL SLOW IVP PRN (08:48)
[2021-08-14] MEDS ORDERED: Meperidine HCl/PF 25 MG/ML VIAL SLOW IVP PRN (08:48)
[2021-08-14] MEDS ORDERED: PACU-Morphine 4MG/ML VIAL SLOW IVP PRN (08:48)
[2021-08-14] MEDS ORDERED: Promethazine HCl 25 MG/ML VIAL IM PRN (08:48)
[2021-08-14] MEDS ORDERED: Ketorolac Tromethamine 30 MG/ML VIAL IVP PRN (08:48)
[2021-08-14] MEDS ORDERED: Promethazine HCl 25 MG/ML VIAL IVPB PRN (08:48)
[2021-08-14] MEDS ORDERED: Ondansetron HCl/PF 4 MG/2 ML Vial IVP PRN (08:48)
[2021-08-14] MEDS ORDERED: Iopamidol 370 76% 50 ML VIAL FS ONE (09:00)
[2021-08-14] MEDS ORDERED: Iopamidol-370 76% 500 ML 1 ML ONE (09:00)
[2021-08-14 10:14] LABS: #Eosinphils 0.1 thou/uL (0.0-0.7); #Monocytes 0.2 thou/uL (0.11-0.59); #Neutrophils 4.8 thou/uL (1.40-6.50); %Basophils 0.4 % (0.0-1.0); %Eosinophils 1.8 % (0.0-10.0); %Lymphocytes 27.8 % (21.0-51.0); Hemoglobin 7.7 g/dL (12.0-16.0); Mean Corpuscular HGB CONC 32.6 g/dL (32.0-36.0); Mean Corpuscular Hemoglobin 30.2 pg (27.0-31.0); Mean Corpuscular Volume 92.5 fL (78.0-98.0); Mean Platelet Volume 9.6 fL (7.4-10.4); Platelet Count 240 thou/uL (130-400); Red Blood Cell (RBC) Count 2.57 mill/uL (4.20-5.40); White Blood Cell (WBC) Count 7.1 thou/uL (4.8-10.8)
[2021-08-14 10:21] LABS: ALT (SGPT) 22 U/L (8-55); AST (SGOT) 32 U/L (5-34); Albumin 3.9 g/dL (3.5-5.0); Alkaline Phosphatase 197 U/L (40-110); Anion Gap 12 mmol/L (10-20); BUN (Urea Nitrogen) 9 mg/dL (7.0-18.7); Bilirubin, Total 4.9 mg/dL (0.2-1.2); Calc. Creatinine Clearance 248 mL/min (70-130); Carbon Dioxide 23 mmol/L (22-29); Chloride 106 mmol/L (98-107); Globulin 2.7 g/dL (2.4-3.5); Glucose 160 mg/dL (70-105); Lipase 7 U/L (8-78); Potassium 4.4 mmol/L (3.5-5.1); Protein, Total 6.6 g/dL (6.0-8.3); Sodium 137 mmol/L (136-145)
[2021-08-14 10:47] LABS: Anisocytosis MODERATE=16-30 cells (100X) (0-5/hpf); Hypochromia SLIGHT = 6-15 cells (100X) (0-5/hpf); MDiff Complete? YES; Ovalocytes SLIGHT = 2-5 cells (100X) (0-1/hpf); Platelet Morphology Comment Appears Adequate; Polychromasia MODERATE = 3-4 cells (100X) (0-2/hpf); Tear Drops SLIGHT = 2-5 cells (100X) (0-1/hpf)
== END 2021-08-14 15:12 | disposition home or self-care (01) ==
LOC: SDC 06:08
PROVIDERS: ATTEND Internal Medicine Gastroenterology
PROC: 0F788DZ Dilation of Cystic Duct with Intraluminal Device, Via Natural or Artificial Opening Endoscopic (ICD-10-PCS; principal; 2021-08-14)
PROC: 0FPB8DZ Removal of Intraluminal Device from Hepatobiliary Duct, Via Natural or Artificial Opening Endoscopic (ICD-10-PCS; principal; 2021-08-14)
DX: K91.89 Other postprocedural complications and disorders of digestive system (principal); K83.8 Other specified diseases of biliary tract; E11.9 Type 2 diabetes mellitus without complications; E66.01 Morbid (severe) obesity due to excess calories; Z68.43 Body mass index [BMI] 50.0-59.9, adult; Z87.891 Personal history of nicotine dependence; Z79.2 Long term (current) use of antibiotics; Z79.84 Long term (current) use of oral hypoglycemic drugs; Z79.899 Other long term (current) drug therapy; Z88.1 Allergy status to other antibiotic agents; Z88.8 Allergy status to other drugs, medicaments and biological substances; Z91.048 Other nonmedicinal substance allergy status
CPT/HCPCS: 36416; 74177; 74330; 80053; 83690; 85025; C2617; J1956; J2405; J2704; J2765; J3010; Q9961-U8; Q9967; S0028

== ENCOUNTER 2021-10-14 06:02 | Day surgery (SDC) | payer BC ==
[2021-10-11 12:06] VITALS: BMI 52.4
[2021-10-14] MEDS ORDERED: fentaNYL Citrate/PF 100 MCG/2 ML SYRINGE ONE (06:44)
[2021-10-14] MEDS ORDERED: Midazolam HCl 2 mg/2 ml Vial ONE (06:44)
[2021-10-14] MEDS ORDERED: SUGAMMADEX SODIUM 200 MG/2 ML VIAL ONE (06:45)
[2021-10-14] MEDS ORDERED: Famotidine/PF 20 mg/2ml Vial ONE (06:45)
[2021-10-14] MEDS ORDERED: Levofloxacin 500 mg/D5W 100 ml Premix Bag ONE (08:12)
[2021-10-14] MEDS ORDERED: Ondansetron PF 4 MG/2 ML Vial ONE (08:22)
[2021-10-14] MEDS ORDERED: Lidocaine 1% PF 5 ML VIAL ONE (08:22)
[2021-10-14] MEDS ORDERED: Glycopyrrolate 0.2 MG/ML 5 ML SYRINGE ONE (08:22)
[2021-10-14] MEDS ORDERED: Dexamethasone 20 MG/5 ML VIAL ONE (08:22)
[2021-10-14] MEDS ORDERED: PROPOFOL 200 MG/20 ML VIAL ONE (08:22)
[2021-10-14] MEDS ORDERED: Metoclopramide HCl 10 MG/2 ML VIAL ONE (08:22)
[2021-10-14] MEDS ORDERED: Rocuronium Bromide 10 MG/ML (10ML VIAL) ONE (08:22)
[2021-10-14] MEDS ORDERED: Iopamidol 15 ML ONE (09:10)
== END 2021-10-14 10:12 | disposition home or self-care (01) ==
LOC: SDC 06:02
PROVIDERS: ATTEND Internal Medicine Gastroenterology
PROC: 0FPB8DZ Removal of Intraluminal Device from Hepatobiliary Duct, Via Natural or Artificial Opening Endoscopic (ICD-10-PCS; principal; 2021-10-14)
PROC: 0FC98ZZ Extirpation of Matter from Common Bile Duct, Via Natural or Artificial Opening Endoscopic (ICD-10-PCS; principal; 2021-10-14)
DX: Z46.59 Encounter for fitting and adjustment of other gastrointestinal appliance and device (principal); K80.50 Calculus of bile duct without cholangitis or cholecystitis without obstruction; D50.9 Iron deficiency anemia, unspecified; K21.9 Gastro-esophageal reflux disease without esophagitis; E11.9 Type 2 diabetes mellitus without complications; Z79.84 Long term (current) use of oral hypoglycemic drugs; Z79.899 Other long term (current) drug therapy; Z88.1 Allergy status to other antibiotic agents; Z88.8 Allergy status to other drugs, medicaments and biological substances; Z91.048 Other nonmedicinal substance allergy status
CPT/HCPCS: 74330; J1100; J1956; J2250; J2405; J2704; J2765; Q9967; S0028